=== PATIENT | female | born 1940 | race Caucasian/White ===

== ENCOUNTER 2024-05-24 23:44 | Inpatient (IN) | payer MEDICARE, SELFPAY ==
[2024-05-24 23:47] VITALS: O2SAT 93
[2024-05-24 23:48] VITALS: BP 115/68
[2024-05-24 23:52] VITALS: BP 115/68; PULSE 66; RESP 16; TEMP 36.4; O2SAT 94; BMI 25.8
--- NOTE | 2024-05-24 23:59 | DI.RAD.S_ITS ---
PROCEDURE: XR HIP W PEL IF DONE RT 2V INDICATIONS: fall, R leg shortened, pain TECHNIQUE: AP pelvis with lateral view(s) of the right hip(s). COMPARISON: None. FINDINGS: Bones: Displaced, comminuted and impacted right intertrochanteric fracture.. Pelvic ring appears intact. No suspicious bony lesions. Decreased osseous mineralization. Degenerative changes of the visualized lower lumbar spine and pubic symphysis. Severe right and mild left hip joint degeneration. Soft tissues: The visualized bowel gas pattern is normal. No suspicious soft tissue calcifications. IMPRESSION: Displaced and impacted right intertrochanteric fracture. Dictated by: Jarred Moe M.D. on 05/25/2024 at 0:39 Approved by: Jarred Moe M.D. on 05/25/2024 at 0:40
[2024-05-25] VITALS (28 sets, daily range): BP systolic 89–146; BP diastolic 38–84; PULSE 59–95; RESP 11–21; TEMP 36.6–37.7; O2SAT 86–100; BMI 11.2
--- NOTE | 2024-05-25 | DI.RAD.S_ITS ---
PROCEDURE: XR HIP W PEL IF DONE RT 2V INDICATIONS: RT HIP IM NAILLING TECHNIQUE: Fluoroscopic images were obtained during a procedure and submitted for interpretation following the completion of the procedure. COMPARISON: [facility], , XR HIP W PEL IF DONE RT 2V, 05/25/2024, 0:00. FINDINGS: These fluoroscopic images were performed for intraoperative localization. On these images, right proximal femur hardware is placed. Please correlate with intraoperative findings. IMPRESSION: Normal intraoperative examination. Dictated by: Shun Page M.D. on 05/25/2024 at 9:49 Approved by: Shun Page M.D. on 05/25/2024 at 9:49
--- NOTE | 2024-05-25 | ED.FALL ---
HPI - Fall General Chief Complaint: Fall Stated Complaint: fall right hip Time Seen by Provider: 05/24/24 23:50 Source: patient and EMS Mode of arrival: EMS History of Present Illness HPI Narrative: 83-year-old female fell out of bed, complains of pain to the right hip. She has arthritis on that side, never had any prior surgeries, no hip replacement. She did have replacement surgery to the right knee. No knee pain. No pain to the right thigh, knee, foreleg, ankle, foot. She had not hit her head. She denies head pain. She denies face pain. She denies pain to her neck, upper back, mid lower back. She denies pain to her anterior abdomen, has hernia left lower quadrant ventral, no increased pain thereafter the fall. She denies use of blood thinner medications. Related Data Allergies Allergy/AdvReac Type Severity Reaction Status Date / Time No Known Drug Allergies Allergy Verified 05/24/24 23:56 Review of Systems Review of Systems Narrative: see HPI Patient History Social History Smoking Status: Never smoker Smoking Status: Never smoker alcohol intake frequency: 0-2 drinks per day Substance Use Type: does not use Exam Narrative Exam Narrative: GENERAL: Well-developed patient, in mild distress. HEAD: Atraumatic. Normocephalic. EYES: Pupils equal round and reactive. Extraocular motions intact. No scleral icterus. No injection or drainage. ENT: Nose without bleeding, purulent drainage. Throat without erythema, tonsillar hypertrophy or exudate. Airway patent. NECK: Trachea midline. Non tender CARDIOVASCULAR: Regular rate and rhythm without murmurs, gallops, or rubs. RESPIRATORY: Clear to auscultation. Breath sounds equal bilaterally. No wheezes, rales, or rhonchi. GASTROINTESTINAL: Abdomen soft, non-tender, nondistended. EXTREMITIES: No gross limb length discrepancy lower extremities. Tenderness to lateral trochanteric region right hip, also anterior hip tenderness. No gross deformity of hip or thigh, no bruising or abrasion or laceration to the skin. No tenderness to right knee, foreleg, ankle, foot. BACK: Nontender without deformity or crepitance. No flank tenderness. NEURO: AOx3. Motor functions grossly nonfocal SKIN: No rash or erythema of visible areas Initial Vital Signs Initial Vital Signs: Vital Signs Temperature 97.6 F 05/24/24 23:52 Pulse Rate 66 05/24/24 23:52 Respiratory Rate 16 05/24/24 23:52 Blood Pressure 115/68 05/24/24 23:52 Pulse Oximetry 94 05/24/24 23:52 Oxygen Delivery Method Room Air 05/24/24 23:52 Course Orders Ordered: ED Orders 05/24/24 23:59 XR hip w pel if done RT 2V Stat Discontinued Medications Hydromorphone HCl (Hydromorphone 1 Mg Inj) 0.5 mg IV NOW ONE Stop: 05/25/24 00:24 Vital Signs Vital signs: Vital Signs - 8 hr 05/24/24 23:52 Temperature 97.6 F Pulse Rate 66 Respiratory Rate 16 Blood Pressure 115/68 Pulse Oximetry 94 Oxygen Delivery Method Room Air MDM - Fall MDM Narrative Medical decision making narrative: Football injury full contact, falling to the left shoulder, left shoulder area pain, tenderness to left AC joint area without gross separation, no significant tenderness along clavicle although has pain along the clavicle by report. X-ray from triage left shoulder and left clavicle ordered. 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 Distal neurovascular intact, no obvious other left upper extremity injuries. X-ray shows some separation left AC joint widening. Consistent with clinical exam. Possible AC joint injury on that side. Continue use of left sling, shoulder range of motion as tolerated to prevent frozen shoulder symptoms. Advised use of [id number] Tylenol and or ibuprofen as needed. Follow up with Orthopedic surgery early next week for assessment, evaluate at that time for return to activities/sports, versus need for home exercise and/or physical therapy regimen. Discharged home with family. Stable, follow up with Orthopedics. Return precautions discussed.
[2024-05-25] MEDS: HYDROMORPHONE 1 MG INJ 0.5 MG IV (00:41)
--- NOTE | 2024-05-25 01:15 | DI.RAD.S_ITS ---
PROCEDURE: XR CHEST 1V INDICATIONS: pre-op TECHNIQUE: One view of the chest was acquired. COMPARISON: None. FINDINGS: Surgical changes and devices: None. Lungs and pleura: Lungs are clear. No pleural effusions or pneumothorax. Mediastinum: Mediastinal contours appear normal. Heart size is enlarged. Bones and chest wall: No suspicious bony lesions. Overlying soft tissues appear unremarkable. IMPRESSION: Cardiomegaly. No acute pulmonary process. Dictated by: Jarred Moe M.D. on 05/25/2024 at 1:31 Approved by: Jarred Moe M.D. on 05/25/2024 at 1:32
--- NOTE | 2024-05-25 01:18 | ED.FALL ---
HPI - Fall General Chief Complaint: Fall Stated Complaint: fall right hip Time Seen by Provider: 05/24/24 23:50 Source: patient and EMS Mode of arrival: EMS Related Data Allergies Allergy/AdvReac Type Severity Reaction Status Date / Time No Known Drug Allergies Allergy Verified 05/24/24 23:56 Patient History Social History Smoking Status: Never smoker Smoking Status: Never smoker alcohol intake frequency: 0-2 drinks per day Substance Use Type: does not use Exam Initial Vital Signs Initial Vital Signs: Vital Signs Pulse Oximetry 93 05/24/24 23:47 Course Orders Ordered: ED Orders 05/24/24 23:59 XR hip w pel if done RT 2V Stat 05/25/24 01:13 CBC Auto Diff [Complete Blood Count AUTO DIFF] Stat CMP [Comprehensive Metabolic Panel] Stat Prothrombin Time INR Stat Urinalysis and Microscopic Stat 05/25/24 01:15 XR chest 1V Stat Discontinued Medications Hydromorphone HCl (Hydromorphone 1 Mg Inj) 0.5 mg IV NOW ONE Stop: 05/25/24 00:24 Last Admin: 05/25/24 00:41 Dose: 0.5 mg Documented By: TAMARA Vital Signs Vital signs: Vital Signs - 8 hr 05/24/24 23:47 05/24/24 23:48 05/24/24 23:52 Temperature 97.6 F Pulse Rate 66 Respiratory Rate 16 Blood Pressure 115/68 115/68 Pulse Oximetry 93 94 Oxygen Delivery Method Room Air 05/25/24 00:00 05/25/24 00:00 05/25/24 00:37 Temperature Pulse Rate 61 70 Respiratory Rate 18 Blood Pressure 118/74 Pulse Oximetry 94 94 Oxygen Delivery Method MDM - Fall Imaging Data Extremity x-ray #1: Radiologist's Impression: [address] [address] XRay Report Signed Patient: Toyin Lynn MR#: [id number] : 1940 Acct:[id number] Age/Sex: 83 / F Date of Service: 05/24/24 Loc: ED Accession Number: [id number] Procedure: XR hip w pel if done RT 2V Ordering Provider: Jose Oquendo MD PROCEDURE: XR HIP W PEL IF DONE RT 2V INDICATIONS: fall, R leg shortened, pain TECHNIQUE: AP pelvis with lateral view(s) of the right hip(s). COMPARISON: None. FINDINGS: Bones: Displaced, comminuted and impacted right intertrochanteric fracture.. Pelvic ring appears intact. No suspicious bony lesions. Decreased osseous mineralization. Degenerative changes of the visualized lower lumbar spine and pubic symphysis. Severe right and mild left hip joint degeneration. Soft tissues: The visualized bowel gas pattern is normal. No suspicious soft tissue calcifications. IMPRESSION: Displaced and impacted right intertrochanteric fracture. Dictated by: Jarred Moe M.D. on 05/25/2024 at 0:39 Approved by: Jarred Moe M.D. on 05/25/2024 at 0:40 Discharge Plan Departure Clinical Impression: Closed hip fracture
--- NOTE | 2024-05-25 01:20 | ED_ITS ---
HPI - Fall General Chief Complaint: Fall Stated Complaint: fall right hip Time Seen by Provider: 05/24/24 23:50 Source: patient and EMS Mode of arrival: EMS History of Present Illness HPI Narrative: 83-year-old female fell from bed, complained of right-sided hip pain, arrival by EMS, given IV pain medications EN route, still having significant pain to the right hip. No other injuries. She has not take chronic blood thinner medications. She has arthritis on that side but no previous hip intervention procedures. She denied injury to her head. She has no complaint of headache, neck pain, upper back pain, lower back pain. She denies pain to her chest abdomen and pelvis. She has pain to her right hip but not to her distal right extremity. She has joint replacement surgery in the right knee but has no knee pain tonight. No left lower extremity injuries. Related Data Allergies Allergy/AdvReac Type Severity Reaction Status Date / Time No Known Drug Allergies Allergy Verified 05/24/24 23:56 Review of Systems Review of Systems Narrative: See HPI Patient History Social History Smoking Status: Never smoker Smoking Status: Never smoker alcohol intake frequency: 0-2 drinks per day Substance Use Type: does not use Exam Narrative Exam Narrative: GENERAL: Well-developed patient, in mild distress. HEAD: Atraumatic. Normocephalic. EYES: Pupils equal round and reactive. Extraocular motions intact. No scleral icterus. No injection or drainage. ENT: Nose without bleeding, purulent drainage. Throat without erythema, tonsillar hypertrophy or exudate. Airway patent. NECK: Trachea midline. Non tender CARDIOVASCULAR: Regular rate and rhythm without murmurs, gallops, or rubs. RESPIRATORY: Clear to auscultation. Breath sounds equal bilaterally. No wheezes, rales, or rhonchi. GASTROINTESTINAL: Abdomen soft, non-tender, nondistended. EXTREMITIES: Some shortening right lower extremity compared to the left side. Good distal pulses. Some tenderness right lateral trochanteric region, without bruising or skin changes, no lacerations or abrasions. Minimal tenderness right anterior hip. No obvious deformity nor tenderness to the distal right lower extremity. No obvious deformity nor tenderness to the left lower extremity, nor to either upper extremity. BACK: Nontender without deformity or crepitance. No flank tenderness. NEURO: AOx3. Motor functions grossly nonfocal SKIN: No rash or erythema of visible areas Initial Vital Signs Initial Vital Signs: Vital Signs Pulse Oximetry 93 05/24/24 23:47 Course Orders Ordered: ED Orders 05/24/24 23:59 XR hip w pel if done RT 2V Stat 05/25/24 01:13 Urinalysis and Microscopic Stat 05/25/24 01:15 XR chest 1V Stat 05/25/24 01:25 CBC Auto Diff [Complete Blood Count AUTO DIFF] Stat CMP [Comprehensive Metabolic Panel] Stat Prothrombin Time INR Stat 05/25/24 01:42 EKG-12 Lead Stat Acetaminophen (Acetaminophen 325 Mg Tablet) 650 mg PO Q6H PRN PRN Reason: Fever/Mild Pain (1-3) Hydrocodone Bitart/Acetaminophen (Hydrocodone/Acet 5/325 Tablet) 2 tab PO Q4H PRN PRN Reason: Pain, Severe (7-10) Hydromorphone HCl (Hydromorphone 0.5 Mg Inj) 0.5 mg IV Q2H PRN PRN Reason: Pain, Severe (7-10) Sodium Chloride (Normal Saline 0.9%) 1,000 mls @ 75 mls/hr IV CONT EDITH Naloxone HCl (Naloxone 0.4 Mg/Ml Vial) 0.2 mg IV Q2MIN PRN PRN Reason: Opiate Reversal Ondansetron HCl (Ondansetron 4 Mg/2 Ml Inj) 4 mg IV Q8HR PRN PRN Reason: Nausea And Vomiting Discontinued Medications Hydromorphone HCl (Hydromorphone 1 Mg Inj) 0.5 mg IV NOW ONE Stop: 05/25/24 00:24 Last Admin: 05/25/24 00:41 Dose: 0.5 mg Documented By: TAMARA Vital Signs Vital signs: Vital Signs - 8 hr 05/24/24 23:47 05/24/24 23:48 05/24/24 23:52 Temperature 97.6 F Pulse Rate 66 Respiratory Rate 16 Blood Pressure 115/68 115/68 Pulse Oximetry 93 94 Oxygen Delivery Method Room Air 05/25/24 00:00 05/25/24 00:00 05/25/24 00:37 Temperature Pulse Rate 61 70 Respiratory Rate 18 Blood Pressure 118/74 Pulse Oximetry 94 94 Oxygen Delivery Method 05/25/24 01:00 05/25/24 01:01 05/25/24 01:01 Temperature Pulse Rate 59 L 61 Respiratory Rate 18 Blood Pressure 103/57 L Pulse Oximetry 93 94 Oxygen Delivery Method 05/25/24 01:30 05/25/24 01:30 05/25/24 02:00 Temperature Pulse Rate 66 73 Respiratory Rate Blood Pressure 110/60 Pulse Oximetry 94 93 Oxygen Delivery Method 05/25/24 02:01 05/25/24 02:01 05/25/24 02:30 Temperature Pulse Rate 77 74 Respiratory Rate Blood Pressure 115/56 L Pulse Oximetry 91 97 Oxygen Delivery Method 05/25/24 02:31 05/25/24 02:31 Temperature Pulse Rate 74 Respiratory Rate Blood Pressure 104/56 L Pulse Oximetry 98 Oxygen Delivery Method MDM - Fall Lab Data Attestation: I reviewed the patient's lab results. Lab results narrative: White blood cell count 9300, hemoglobin 12, platelets [id number] adequate. Sodium 129 low without previous comparisons, glucose 113. Potassium adequate. Serum CO2 27. BUN 10 and creatinine 0.58 normal. Liver functions unremarkable. Serum albumin 3.3 low. 05/25/24 01:25 05/25/24 01:25 Labs: Lab Results 05/25/24 Range/Units 01:25 WBC 9.3 (4.5-11.0) X10^3/uL RBC 3.79 L (4.0-5.2) X10^6/uL Hgb 12.0 (12.0-16.0) g/dL Hct 35.1 L (36-46) % MCV 92.6 (80-100) fL MCH 31.7 (26-34) PG MCHC 34.3 (30-36) % RDW 14.2 (11.6-14.8) % Plt Count 186 (150-400) X10^3/uL Neut % (Auto) 87.5 H (50-75) % Lymph % (Auto) 6.3 L (25-40) % [place] % (Auto) 5.2 (3-14) % Eos % (Auto) 0.5 L (2-4) % Baso % (Auto) 0.5 (0-2) % Neut # (Auto) 8200 H (9368-9262) /uL Lymph # (Auto) 600 L (8235-1431) /uL [place] # (Auto) 500 (0-900) /uL Eos # (Auto) 0 (0-450) /uL Baso # (Auto) 0 (0-100) /uL PT 11.5 (9.4-12.5) SECONDS INR 1.0 (0.9-1.3) Sodium 129 L (137-145) mmol/L Potassium 3.7 (3.4-5.1) mmol/L Chloride 99 (98-107) mmol/L Carbon Dioxide 27 (22-32) mmol/L BUN 10 (7-17) mg/dL Creatinine 0.58 (0.52-1.04) mg/dL Estimated GFR > 60 (>60) mL/min BUN/Creatinine Ratio 17.2 (6-22) Glucose 113 H (80-110) mg/dL Calcium 8.6 (8.4-10.2) mg/dL Total Bilirubin 0.3 (0.2-1.3) mg/dL AST 24 (14-36) IU/L ALT 16 (<35) IU/L Alkaline Phosphatase 56 (38-126) U/L Total Protein 6.0 L (6.3-8.2) g/dL Albumin 3.3 L (3.5-5.0) g/dL Globulin 2.7 (1.7-4.1) g/dL Albumin/Globulin Ratio 1.2 (1.0-2.8) Imaging Data Chest x-ray: My Impression: pre-op study, no acute changes Radiologist's Impression: [place] [address] XRay Report Signed Patient: Toyin Lynn MR#: [id number] : 1940 Acct:[id number] Age/Sex: 83 / F Date of Service: 05/25/24 Loc: ED Accession Number: [id number] Procedure: XR chest 1V Ordering Provider: Jose Oquendo MD PROCEDURE: XR CHEST 1V INDICATIONS: pre-op TECHNIQUE: One view of the chest was acquired. COMPARISON: None. FINDINGS: Surgical changes and devices: None. Lungs and pleura: Lungs are clear. No pleural effusions or pneumothorax. Mediastinum: Mediastinal contours appear normal. Heart size is enlarged. Bones and chest wall: No suspicious bony lesions. Overlying soft tissues appear unremarkable. IMPRESSION: Cardiomegaly. No acute pulmonary process. Dictated by: Jarred Moe M.D. on 05/25/2024 at 1:31 Approved by: Jarred Moe M.D. on 05/25/2024 at 1:32 ECG Data Attestation: I personally reviewed and interpreted this ECG as follows: Interpretation: Normal sinus rhythm with rate of 75, no obvious ST segment elevation or depression changes. [place] 180, QRS of 88, QTC 482. MDM Narrative Medical decision making narrative: 83-year-old female with right-sided hip pain after fall from bed, some limb shortening, suspect dislocation and/or fracture with impaction. Distal neurovascularly intact, no other injuries obvious. X-ray pelvis with right hip ordered. Still having pain, IV Dilaudid dose. X-ray pelvis with right hip shows intertrochanteric fracture on the right hip with impaction and some displacement. Dislocation. See radiology report. We will send preoperative studies: CBC, CMP, PT/INR, urinalysis, chest x-ray, EKG. Anticipate admission here unless renal function or other problems identified that can not be managed here. Preop labs unremarkable, normal renal function and liver functions, chest x-ray with some cardiomegaly without fluid overload changes noted. EKG unremarkable. Patient should be on have treatment here. We will contact Orthopedic surgery, anticipate admission to hospitalist service 0200, case discussed with Orthopedic surgery Dr. Rivera, can admit patient to hospitalist service here, anticipate surgery later this morning. 0225, case discussed with hospitalist Dr. Eaton who accepts patient for admission to inpatient Discharge Plan Departure Patient Disposition: Admitted As Inpatient Clinical Impression: Closed intertrochanteric fracture of femur, Hyponatremia Admit Date/Time: 05/25/24 02:32 Admit Provider: Guillaume Eaton
[2024-05-25 01:33] LABS: Add Manual Diff / Slide Review NO; Basophils Absolute Auto 0 /uL (0-100); Basophils Percent Auto 0.5 % (0-2); Eosinophils Absolute Auto 0 /uL (0-450); Eosinophils Percent Auto 0.5 % (2-4); Hematocrit 35.1 % (36-46); Lymphocytes Absolute Auto 600 /uL (1100-4500); Lymphocytes Percent Auto 6.3 % (25-40); Mean Corpuscular HGB Conc 34.3 % (30-36); Mean Corpuscular Hemoglobin 31.7 PG (26-34); Mean Corpuscular Volume 92.6 fL (80-100); Monocytes Absolute Auto 500 /uL (0-900); Monocytes Percent Auto 5.2 % (3-14); Neutrophils Absolute Auto 8200 /uL (1500-7000); Neutrophils Percent Auto 87.5 % (50-75); Platelet Count 186 X10^3/uL (150-400); Red Blood Cell Count 3.79 X10^6/uL (4.0-5.2); Red Cell Distribution Width 14.2 % (11.6-14.8); White Blood Cell Count 9.3 X10^3/uL (4.5-11.0)
[2024-05-25 01:38] LABS: Prothrombin Time 11.5 SECONDS (9.4-12.5)
[2024-05-25 01:43] LABS: Alanine Aminotransferase 16 IU/L (<35); Albumin 3.3 g/dL (3.5-5.0); Albumin Globulin Ratio 1.2 (1.0-2.8); Alkaline Phosphatase 56 U/L (38-126); Aspartate Aminotransferase 24 IU/L (14-36); BUN Creatinine Ratio 17.2 (6-22); Bilirubin Total 0.3 mg/dL (0.2-1.3); Blood Urea Nitrogen 10 mg/dL (7-17); Calcium 8.6 mg/dL (8.4-10.2); Carbon Dioxide 27 mmol/L (22-32); Chloride 99 mmol/L (98-107); Estimated Glomerular Filt Rate > 60 mL/min (>60); Globulin 2.7 g/dL (1.7-4.1); Glucose 113 mg/dL (80-110); HEMOLYSIS < 15 (0-50); Potassium 3.7 mmol/L (3.4-5.1); Sodium 129 mmol/L (137-145)
--- NOTE | 2024-05-25 01:51 | EKG_ITS ---
[place] [address] [place] [address] Test Date: 2024-05-25 Pat Name: Toyin Lynn Department: [facility] Room: Gender: Female [employer]: : 1940 Requested By: Order Number: [id number] Reading MD: Bryant Frazier Measurements Intervals [place] Rate: 75 P: 79 HI: 180 QRS: -32 QRSD: 88 T: 45 QT: 432 QTc: 482 Interpretive Statements Sinus rhythm with premature supraventricular complexes Left axis deviation Low voltage QRS Electronically Signed On 05-25-2024 18:11:17 PDT by Bryant Frazier
--- NOTE | 2024-05-25 02:47 | P.HP_ITS ---
History of Present Illness History of Present Illness Chief complaint: fall right hip Narrative: 83 year old female with no reported past medical history presents with a ground level fall. Per the patient's report, the patient had a mechanical fall at home. The patient fell onto her right side and landed on her right hip. The patient denies any LOC or head injury. The patient states that she does not have any other pain other than her right hip. The patient states the pain is severe and she is unable to bear weight on it. The patient denies any recent chest pain, fever, chills, nausea, vomiting or diarrhea. The patient also denies any shortness of breath or coughing. In our ER, the patient was hemodynamically stable. Labs only shows a sodium of 129 but other labs were relatively benign. EKGs and CXR does not show any acute findings. Imaging of hip shows right hip fracture. Orthopedic surgery consulted and recommended admission for plan for OR this morning. The patient was given IV prn Dilaudid. PFSH Social History household members: friend(s) Smoking Status: Never smoker Meds Home Medications and Allergies Allergies Allergy/AdvReac Type Severity Reaction Status Date / Time No Known Drug Allergies Allergy Verified 05/24/24 23:56 Review of Systems Review of Systems ROS: Yes All systems reviewed with the patient and are negative except as otherwise documented Exam Vital Signs (past 8 hours): - 05/24/24 23:47 05/24/24 23:48 05/24/24 23:52 Temperature 97.6 F Pulse Rate 66 Respiratory Rate 16 Blood Pressure 115/68 115/68 Pulse Oximetry 93 94 Oxygen Delivery Method Room Air 05/25/24 00:00 05/25/24 00:00 05/25/24 00:37 Temperature Pulse Rate 61 70 Respiratory Rate 18 Blood Pressure 118/74 Pulse Oximetry 94 94 Oxygen Delivery Method 05/25/24 01:00 05/25/24 01:01 05/25/24 01:01 Temperature Pulse Rate 59 L 61 Respiratory Rate 18 Blood Pressure 103/57 L Pulse Oximetry 93 94 Oxygen Delivery Method 05/25/24 01:30 05/25/24 01:30 05/25/24 02:00 Temperature Pulse Rate 66 73 Respiratory Rate Blood Pressure 110/60 Pulse Oximetry 94 93 Oxygen Delivery Method 05/25/24 02:01 05/25/24 02:01 05/25/24 02:30 Temperature Pulse Rate 77 74 Respiratory Rate Blood Pressure 115/56 L Pulse Oximetry 91 97 Oxygen Delivery Method 05/25/24 02:31 05/25/24 02:31 Temperature Pulse Rate 74 Respiratory Rate Blood Pressure 104/56 L Pulse Oximetry 98 Oxygen Delivery Method Oxygen Delivery Method Room Air Narrative Exam Narrative: GENERAL: The patient is not in any acute distressed. Awake and alert. HEENT: Nonicteric sclerae, PERRLA, EOMI. Oropharynx clear. Moist mucous membranes. Conjunctivae appear well perfused. HEART: Regular rate and rhythm without murmurs. No lower extremities edema. LUNGS: Clear to auscultation bilaterally. No wheezing, crackles or rhonchi ABDOMEN: Soft, positive bowel sounds, nontender. SKIN: No rash, no excessive bruising, petechiae, or purpura. NEUROLOGIC: AxO x 3. Cranial nerves II-XII intact without motor/sensory deficit. Note limited movement however in right LES due to right hip pain Objective Labs 05/25/24 04:00 05/25/24 04:00 Labs: Laboratory Results - last 24 hr 05/25/24 01:25 WBC 9.3 RBC 3.79 L Hgb 12.0 Hct 35.1 L MCV 92.6 MCH 31.7 MCHC 34.3 RDW 14.2 Plt Count 186 Neut % (Auto) 87.5 H Lymph % (Auto) 6.3 L [place] % (Auto) 5.2 Eos % (Auto) 0.5 L Baso % (Auto) 0.5 Neut # (Auto) 8200 H Lymph # (Auto) 600 L [place] # (Auto) 500 Eos # (Auto) 0 Baso # (Auto) 0 PT 11.5 INR 1.0 Sodium 129 L Potassium 3.7 Chloride 99 Carbon Dioxide 27 BUN 10 Creatinine 0.58 Estimated GFR > 60 BUN/Creatinine Ratio 17.2 Glucose 113 H Calcium 8.6 Total Bilirubin 0.3 AST 24 ALT 16 Alkaline Phosphatase 56 Total Protein 6.0 L Albumin 3.3 L Globulin 2.7 Albumin/Globulin Ratio 1.2 Assessment & Plan Assessment & Plan narrative: Ground level fall with right hip fracture. Admit the patient to medical tele inpatient. NPO. IVF. Pain control with prn IV dilaudid. Note patient medically stable for surgery but at least moderate cardiopulmonary risk for surgery due to advanced age. Orthopedic surgery is plan for OR this AM. Will need PT/OT post surgery. Mild hyponatremia. Sodium 129. Likely from dehydration. NS and recheck sodium in AM. Dehydration. IVF. DVT PPx SCDs for now due to plan OR in AM Code status full code Disposition rehab in 2 days Time-Based Coding :: [TOTAL MINUTES] spent with patient and on the chart (including review of chart, obtaining history, exam, reviewing outside data, placing orders, documenting exam and treatment plan, and counseling patient) on [DATE].
[2024-05-25] MEDS: SODIUM CHLORIDE 0.9% 1,000 ML 75 ML IV (03:23)
[2024-05-25] MEDS: HYDROMORPHONE 0.5 MG INJ IV ×2 (03:31→16:30)
[2024-05-25 04:10] LABS: Bilirubin Urine UA NEGATIVE (NEGATIVE); Color Urine UA YELLOW; Glucose Urine UA NEGATIVE (Negative); Ketones Urine UA TRACE (NEGATIVE); Leukocyte Esterase Urine UA NEGATIVE (NEGATIVE); Nitrite Urine UA POSITIVE (Negative); Occult Blood Urine UA NEGATIVE (Negative); Protein Urine UA NEGATIVE (Negative); Specific Gravity Urine UA <=1.005 (1.000-1.035); Urobilinogen Urine UA 0.2 E.U./dL (0.2)
[2024-05-25 04:11] LABS: Appearance Urine UA SL CLOUDY; Urine Volume 10mL (spun)
[2024-05-25 04:16] LABS: WBC Urine 0-1/HPF (0-5/HPF)
[2024-05-25 04:17] LABS: Bacteria Urine Many (>30); Culture Indicated Urine Specimen Cultured; RBC Urine None Seen (0-5/HPF); Squamous Epithelial Cell Urine 0-1 /HPF (0-5/HPF)
[2024-05-25 04:30] LABS: Add Manual Diff / Slide Review NO; Basophils Absolute Auto 0 /uL (0-100); Basophils Percent Auto 0.5 % (0-2); Eosinophils Absolute Auto 0 /uL (0-450); Eosinophils Percent Auto 0.2 % (2-4); Hematocrit 37.3 % (36-46); Hemoglobin 12.4 g/dL (12.0-16.0); Lymphocytes Absolute Auto 400 /uL (1100-4500); Lymphocytes Percent Auto 3.8 % (25-40); Mean Corpuscular HGB Conc 33.3 % (30-36); Mean Corpuscular Hemoglobin 31.2 PG (26-34); Mean Corpuscular Volume 93.6 fL (80-100); Monocytes Absolute Auto 500 /uL (0-900); Monocytes Percent Auto 5.5 % (3-14); Neutrophils Absolute Auto 8900 /uL (1500-7000); Platelet Count 197 X10^3/uL (150-400); Red Blood Cell Count 3.98 X10^6/uL (4.0-5.2); Red Cell Distribution Width 13.9 % (11.6-14.8); White Blood Cell Count 9.9 X10^3/uL (4.5-11.0)
[2024-05-25 04:35] LABS: BUN Creatinine Ratio 20.8 (6-22); Blood Urea Nitrogen 11 mg/dL (7-17); Calcium 8.7 mg/dL (8.4-10.2); Carbon Dioxide 28 mmol/L (22-32); Chloride 99 mmol/L (98-107); Estimated Glomerular Filt Rate > 60 mL/min (>60); Glucose 121 mg/dL (80-110); HEMOLYSIS < 15 (0-50); Potassium 4.1 mmol/L (3.4-5.1); Sodium 131 mmol/L (137-145)
[2024-05-25] MEDS: cefTRIAXone 1,000 MG in SODIUM CHLORIDE 0.9% 100 ML 200 MG IV (06:34)
--- NOTE | 2024-05-25 08:29 | PT-IP ANOTE ---
PT eval received. EMR reviewed. Pt scheduled for sx today. will d/c PT eval order and will wait for new order post-sx
--- NOTE | 2024-05-25 08:57 | PM.HP.1 ---
History of Present Illness History of Present Illness Chief complaint: fall right hip Narrative: CHIEF COMPLAINT: Hip fracture PATIENT SUMMARY: The patient is an 83-year-old female who presented with a hip fracture. HISTORY OF PRESENT ILLNESS: The patient was admitted as an inpatient consult for a hip fracture. The injury was confirmed through imaging, which revealed a simple pattern, intertrochanteric right femur fracture with displacement. The imaging also showed significant right hip osteoarthritis, characterized by subchondral sclerosis and acetabular cysts. The patient described ongoing hip pain prior to the fracture, indicating chronic hip arthritis. The fall leading to the fracture occurred at ground level. The patient had been active, moving boxes and art supplies, before the incident. There are plans to fix the fracture with a nail, with consideration for a potential hip replacement in the future due to existing arthritis. The patient used a walker prior to this incident. PAST MEDICAL HISTORY: - Osteoarthritis of the right hip PAST SURGICAL HISTORY: - Knee replacement (date unspecified) MEDICATIONS: Not available ALLERGIES: Not available SOCIAL HISTORY: - The patient lives with a head doctor for [employer] and another medical nurse friend. - The patient is an artist with a history of painting. FAMILY HISTORY: Not available REVIEW OF SYSTEMS: Musculoskeletal: Positive for chronic right hip pain. Negative for any fractures around the knee similar to the current hip fracture. VITALS AND PHYSICAL EXAM: Not available ASSESSMENT: 1. Intertrochanteric right femur fracture: This was confirmed by imaging and was likely exacerbated by a fall at ground level. The underlying osteoarthritis likely contributed to the fracture risk. 2. Right hip osteoarthritis: The patient's chronic hip pain and imaging findings suggest significant osteoarthritis, which may necessitate a future hip replacement. PLAN: Treatment: - Surgical fixation of the intertrochanteric right femur fracture with a nail. Tests: - Imaging was already performed with AP pelvis and lateral right hip radiographs. Patient Education: - Discussed the implications of existing arthritis on hip fracture treatment and the potential need for future hip replacement. - Informed the patient about surgical risks, including bleeding, damage to surrounding structures, and the possibility of requiring additional surgery in the future. Follow-Up: - Planned post-operative follow-up for monitoring fracture healing and assessing the need for future hip replacement. Disposition: - The patient was advised to recover at home with assistance from housemates, avoiding a nursing facility. [facility] Social History household members: friend(s) Smoking Status: Never smoker Meds Home Medications and Allergies Allergies Allergy/AdvReac Type Severity Reaction Status Date / Time No Known Drug Allergies Allergy Verified 05/24/24 23:56 Review of Systems Review of Systems ROS: Yes All systems reviewed with the patient and are negative except as otherwise documented Exam Vital Signs (past 8 hours): - 05/25/24 01:00 05/25/24 01:01 05/25/24 01:01 Temperature Pulse Rate 59 L 61 Respiratory Rate 18 Blood Pressure 103/57 L Pulse Oximetry 93 94 Oxygen Delivery Method 05/25/24 01:30 05/25/24 01:30 05/25/24 02:00 Temperature Pulse Rate 66 73 Respiratory Rate Blood Pressure 110/60 Pulse Oximetry 94 93 Oxygen Delivery Method 05/25/24 02:01 05/25/24 02:01 05/25/24 02:30 Temperature Pulse Rate 77 74 Respiratory Rate Blood Pressure 115/56 L Pulse Oximetry 91 97 Oxygen Delivery Method 05/25/24 02:31 05/25/24 02:31 05/25/24 03:12 Temperature 99.0 F Pulse Rate 74 95 H Respiratory Rate 18 Blood Pressure 104/56 L 112/68 Pulse Oximetry 98 94 Oxygen Delivery Method 05/25/24 03:30 05/25/24 07:00 Temperature 98.1 F Pulse Rate 92 H Respiratory Rate 16 Blood Pressure 116/68 Pulse Oximetry 97 Oxygen Delivery Method Nasal Cannula Oxygen Delivery Method Nasal Cannula Const General: cooperative Orientation: alert and awake HENMT Head: normal to inspection Ears: hearing grossly normal bilaterally Eyes General: appearance normal, both eyes and all related structures Neck Neck: normal visual inspection Resp Effort & Inspection: normal respiratory effort and able to speak in complete sentences Cardio Pulses: other (peripheral pulses present) Skin Lesions: no lesions Rashes: no rashes Neuro General: patient alert, patient awake and moves all extremities Psych Appearance: grossly normal Objective Labs 05/25/24 04:00 05/25/24 04:00 Labs: Laboratory Results - last 24 hr 05/25/24 05/25/24 01:25 04:00 WBC 9.3 9.9 RBC 3.79 L 3.98 L Hgb 12.0 12.4 Hct 35.1 L 37.3 MCV 92.6 93.6 MCH 31.7 31.2 MCHC 34.3 33.3 RDW 14.2 13.9 Plt Count 186 197 Neut % (Auto) 87.5 H 90.0 H Lymph % (Auto) 6.3 L 3.8 L [place] % (Auto) 5.2 5.5 Eos % (Auto) 0.5 L 0.2 L Baso % (Auto) 0.5 0.5 Neut # (Auto) 8200 H 8900 H Lymph # (Auto) 600 L 400 L [place] # (Auto) 500 500 Eos # (Auto) 0 0 Baso # (Auto) 0 0 PT 11.5 INR 1.0 Sodium 129 L 131 L Potassium 3.7 4.1 Chloride 99 99 Carbon Dioxide 27 28 BUN 10 11 Creatinine 0.58 0.53 Estimated GFR > 60 > 60 BUN/Creatinine Ratio 17.2 20.8 Glucose 113 H 121 H Calcium 8.6 8.7 Total Bilirubin 0.3 AST 24 ALT 16 Alkaline Phosphatase 56 Total Protein 6.0 L Albumin 3.3 L Globulin 2.7 Albumin/Globulin Ratio 1.2 Urine Color Yellow Urine Appearance Sl cloudy Urine pH 6.0 Ur Specific [place] <=1.005 Urine Protein Negative Urine Glucose (UA) Negative Urine Ketones Trace H Urine Occult Blood Negative Urine Nitrate Positive H Urine Bilirubin Negative Urine Urobilinogen 0.2 Ur Leukocyte Esterase Negative Urine RBC None seen Urine WBC 0-1/hpf Ur Squamous Epith Cells 0-1 /hpf Urine Bacteria Many (>30) H Ur Culture Indicated? Specimen cultured Vol Urine Centrifuged 10ml (spun) Assessment & Plan Time-Based Coding :: [TOTAL MINUTES] spent with patient and on the chart (including review of chart, obtaining history, exam, reviewing outside data, placing orders, documenting exam and treatment plan, and counseling patient) on [DATE].
[2024-05-25] MEDS: LACTATED RINGERS 1,000 ML 42 ML IV (09:00)
[2024-05-25] MEDS: TRANEXAMIC ACID 1,000 MG in SODIUM CHLORIDE 0.9% 100 ML 200 MG IV ×2 (09:31→10:04)
[2024-05-25] MEDS: CEFAZOLIN 2 GM/100 ML PREMIX 100 ML IV ×2 (09:31→18:16)
--- NOTE | 2024-05-25 09:41 | SUR.OPER ---
Supine on padded [place] table with bilateral legs secured in padded positioning boots and suspended in positioning spars, operative leg in traction per surgeon. Head on one pillow. Arm on non-operative side secured on padded armboard <90 degrees abduction. Arm on operative side padded and resting across chest then secured with tape over sheet. Padded perineal post in place per surgeon.
[2024-05-25] MEDS: BUPIVACAINE 0.25% (PF) 30 ML, EPINEPHrine 0.15 MG INJ (09:49)
--- NOTE | 2024-05-25 10:24 | P.OP_ITS ---
Operative Date/Time/Diagnoses Date of procedure: 05/25/24 Pre-op diagnosis: Intertrochanteric right femur fracture Post-op diagnosis: same Procedure & Clinicians Procedure: Intramedullary nailing of intertrochanteric right femur fracture Same procedure as scheduled: Yes Surgeon: Aidan Rivera Click Yes if Unassisted: Yes Anesthesia Type: General and Local Operative Notes Estimated Blood Loss (mL): 200 Procedure in detail: Right Hip Intramedullary Nailing for Intertrochanteric Femur Fracture Implants: * [employer]ran [employer]hew 11.5 mm x 20 cm InterTAN nail * 95 mm proximal lag screw * 90 mm proximal compression screw * 37.5 mm distal interlocking screw Procedure in detail: This patient presented to the hospital for hip pain and was found to have an intertrochanteric femur fracture on radiographic evaluation in the emergency department. ?As the on-call orthopedic surgeon I was consulted for management. ?The patient was admitted to the medicine service here at [facility] and received a preoperative evaluation to ensure that no optimization measures would be necessary to minimize the patient's risk for complications around surgery prior to proceeding with intramedullary nailing. ?After assessment from the watch crystal edge grinder as well as anesthesia the patient was deemed optimized for surgery. ?Risks and benefits were discussed. ?All questions were answered. ?Informed consent was obtained. ?The operative site on the right extremity was marked. ?The patient was taken to the operating room and transferred onto a [place] table. ?All bony prominences were padded. ?A time-out procedure was performed verifying the correct patient identity, operative site, medical comorbidities, ASA score, and medication allergies. ?Injury radiographs displaying the injured hip were displayed in the room. ?Ancef and tranexamic acid were administered. Prior to incision fluoroscopy was utilized to manipulate the fracture into an appropriate reduction. ?This involved traction and degrees of internal rotation. ?Once satisfied with the radiographic appearance of the fracture on an AP hip radiograph as well as a lateral hip radiograph the patient was prepped and draped in the usual sterile fashion. ?I mapped out the start points fluoroscopically with the guidewire. ?I obtained a start point at the tip of the greater trochanter on the AP view aiming towards the lesser trochanter and centered in the greater trochanter aiming down the femoral shaft on the lateral view. ?The guidewire was inserted and an opening Reamer was utilized to gain access to the canal. ?The InterTAN nail was introduced and passed down to an appropriate depth where the interlocking screws would aim towards the center of the femur on an AP view. ?On a lateral fluoroscopic view the rotation of the C- arm was adjusted until the nail was centered in the femoral head. ?The jig was then rotated so that it would line with the nail and the femoral head in order to set the rotation of the nail. ?A guidewire was passed and evaluated to ensure appropriate center center position on both the AP and lateral fluoroscopic images to minimize tip apex distance. ?Once satisfied with the guidewire position I used the drills for the lag and compression screws for the InterTAN nail and measured the length of those. ?The compression screw utilized was 5 mm shorter than the lag screw. ?These were both inserted and correct positioning was verified fluoroscopically. ?The distal interlocking screw was inserted through the jig. ?The threaded capsular was removed proximally and final fluoroscopic images were obtained evaluating fracture reduction and implant positioning on AP and lateral views throughout the entire construct. ?I was satisfied with these radiographs. The wound was copiously irrigated. ?Local anesthesia was infiltrated throughout the wound. ?The wound was closed and a soft dressing was applied. ?The patient was transferred off of the [place] table and brought to the PACU. Postoperative plan: * Weightbearing as tolerated * Aspirin 81 mg twice per day for DVT prophylaxis * Long-term there is a significant risk that after this heals she returns electively for conversion to total hip arthroplasty given her pre-existing hip arthritis. I will discuss that possibility with her in detail during follow up visits in clinic * Recommend multimodal pain regimen * Anticipate that patient will be able to return home postoperatively after a inpatient hospital stay as she has ample home support * Follow up in [address] [facility]
--- NOTE | 2024-05-25 12:50 | P.HP_ITS ---
History of Present Illness History of Present Illness Date Patient Seen: 05/25/24 Time Patient Seen: 11:15 Chief complaint: fall right hip Narrative: From overnight provider, 83 year old female with no reported past medical history presents with a ground level fall. Per the patient's report, the patient had a mechanical fall at home. The patient fell onto her right side and landed on her right hip. The patient denies any LOC or head injury. The patient states that she does not have any other pain other than her right hip. The patient states the pain is severe and she is unable to bear weight on it. The patient denies any recent chest pain, fever, chills, nausea, vomiting or diarrhea. The patient also denies any shortness of breath or coughing. In our ER, the patient was hemodynamically stable. Labs only shows a sodium of 129 but other labs were relatively benign. EKGs and CXR does not show any acute findings. Imaging of hip shows right hip fracture. Orthopedic surgery consulted and recommended admission for plan for OR this morning. The patient was given IV prn Dilaudid. Interval History: Patient is now s/p repair with orthopedics this morning. Complains of hip pain, improved with medications. Denies chest pain, shortness of breath, dizziness. Very much does not wish to go to rehab, would like home health if needed. [facility], [facility] Social History household members: friend(s) Smoking Status: Never smoker Meds Home Medications and Allergies Home Medications Medication Instructions Recorded Confirmed Type multivitamin with minerals-folic 1 tab PO DAILY 05/25/24 05/25/24 History acid 120 mcg chewable tablet (Adult Multivitamin Gummies) Allergies Allergy/AdvReac Type Severity Reaction Status Date / Time No Known Drug Allergies Allergy Verified 05/24/24 23:56 Review of Systems Review of Systems Narrative: All other systems reviewed with the patient and are negative unless otherwise stated. Exam Vital Signs (past 8 hours): - 05/25/24 07:00 05/25/24 07:00 05/25/24 08:30 Temperature 98.1 F 99.9 F H Pulse Rate 92 H 84 Respiratory Rate 16 16 Blood Pressure 116/68 146/84 H Pulse Oximetry 97 94 Oxygen Delivery Method Nasal Cannula Room Air Oxygen Flow Rate 05/25/24 10:19 05/25/24 10:22 05/25/24 10:28 Temperature 98.9 F Pulse Rate 85 94 H 78 Respiratory Rate 11 L 15 18 Blood Pressure 99/49 L 96/56 L 100/58 L Pulse Oximetry 86 L 95 99 Oxygen Delivery Method Room Air Nasal Cannula Nasal Cannula Oxygen Flow Rate 3 2 05/25/24 10:34 05/25/24 10:39 05/25/24 10:47 Temperature Pulse Rate 76 80 74 Respiratory Rate 15 21 19 Blood Pressure 100/63 89/63 L 98/58 L Pulse Oximetry 99 99 98 Oxygen Delivery Method Nasal Cannula Nasal Cannula Nasal Cannula Oxygen Flow Rate 2 2 2 05/25/24 10:54 05/25/24 11:10 05/25/24 11:40 Temperature 98.5 F 98.1 F Pulse Rate 78 77 76 Respiratory Rate 16 16 16 Blood Pressure 107/63 122/78 113/79 Pulse Oximetry 96 95 97 Oxygen Delivery Method Nasal Cannula Oxygen Flow Rate 2 2 2 05/25/24 12:30 05/25/24 12:46 Temperature 98.1 F Pulse Rate 72 Respiratory Rate 16 Blood Pressure 112/38 L 119/71 Pulse Oximetry 97 Oxygen Delivery Method Oxygen Flow Rate 2 Oxygen Delivery Method Nasal Cannula Oxygen Flow Rate 2 Narrative Exam Narrative: Gen: NAD, alert CV: RRR no m/r/g Pulm: CTA b/l Ext: no edema Neuro: moves all extremities equally, no obvious focal deficits Objective Labs 05/25/24 04:00 05/25/24 04:00 Labs: Laboratory Results - last 24 hr 05/25/24 05/25/24 01:25 04:00 WBC 9.3 9.9 RBC 3.79 L 3.98 L Hgb 12.0 12.4 Hct 35.1 L 37.3 MCV 92.6 93.6 MCH 31.7 31.2 MCHC 34.3 33.3 RDW 14.2 13.9 Plt Count 186 197 Neut % (Auto) 87.5 H 90.0 H Lymph % (Auto) 6.3 L 3.8 L [place] % (Auto) 5.2 5.5 Eos % (Auto) 0.5 L 0.2 L Baso % (Auto) 0.5 0.5 Neut # (Auto) 8200 H 8900 H Lymph # (Auto) 600 L 400 L [place] # (Auto) 500 500 Eos # (Auto) 0 0 Baso # (Auto) 0 0 PT 11.5 INR 1.0 Sodium 129 L 131 L Potassium 3.7 4.1 Chloride 99 99 Carbon Dioxide 27 28 BUN 10 11 Creatinine 0.58 0.53 Estimated GFR > 60 > 60 BUN/Creatinine Ratio 17.2 20.8 Glucose 113 H 121 H Calcium 8.6 8.7 Total Bilirubin 0.3 AST 24 ALT 16 Alkaline Phosphatase 56 Total Protein 6.0 L Albumin 3.3 L Globulin 2.7 Albumin/Globulin Ratio 1.2 Urine Color Yellow Urine Appearance Sl cloudy Urine pH 6.0 Ur Specific [place] <=1.005 Urine Protein Negative Urine Glucose (UA) Negative Urine Ketones Trace H Urine Occult Blood Negative Urine Nitrate Positive H Urine Bilirubin Negative Urine Urobilinogen 0.2 Ur Leukocyte Esterase Negative Urine RBC None seen Urine WBC 0-1/hpf Ur Squamous Epith Cells 0-1 /hpf Urine Bacteria Many (>30) H Ur Culture Indicated? Specimen cultured Vol Urine Centrifuged 10ml (spun) Assessment & Plan Assessment & Plan narrative: 1. Acute pathologic R intertrochanteric femur fracture, secondary to osteoporosis, present on admission - s/p intermedullary nailing today with orthopedics - PT/OT to start later today - pain control as needed - Patient does not wish to go to SNF, will see how therapies go today. - Imbalance / fall may be in part due to acute cystitis. 2. Acute cystitis, present on admission - 3 days ceftriaxone. - Follow up urine cultures. 3. Hyponatremia, unknown chronicity, present on admission - improved to 131 today, will stop IV fluids given shortage, continue to encourage oral rehydration. If there is worsening will further evaluate with urine sodium. At this time will continue to monitor with daily BMP. Will also stop telemetry. Code: DNR, surrogate is patient's son DVT: Per orthopedics, ASA BID I have utilized all available immediate resources to obtain, update, or review the patient's current medications. Dispo: patient admitted under inpatient status. Unclear if will be able to discharge home or possible SNF, will have PT/OT evaluations. Additional history obtained via discussions with the overnight provider and orthopedic surgeon. These discussions contributed to the creation of the above assessment and plan. I have reviewed patient's presenting documentation, labs, and imaging personally. Time-Based Coding :: [TOTAL MINUTES] spent with patient and on the chart (including review of chart, obtaining history, exam, reviewing outside data, placing orders, documenting exam and treatment plan, and counseling patient) on [DATE].
[2024-05-25] MEDS: HYDROCODONE/ACET 5/325 TABLET 2 TAB PO ×2 (13:52→20:38)
[2024-05-25] MEDS: IBUPROFEN 600 MG TABLET PO ×2 (13:55→18:16)
--- NOTE | 2024-05-25 14:39 | CM.DANOTE ---
Patient is an 83 yo female who was admitted INPT Status on 05/25/24 for GLF with hip fx. Pt has MCR for insurance and her PCP is not listed. EMR was reviewed. Per MD, pt admitted with UTI after GLF with hip fx and NPO. Per Ortho, recommendation of hip surgery and taken to OR this morning Monday. PT ordered and pending and PT will attempt eval this afternoon but might have to eval in the morning due to caseload. SW met bedside with pt and her adult son/DPALEJANDRA [place] and explained role and they confirm pt lives at home in [place] with a couple friends and son Felix lives in [place]. Pt is active and independent at baseline and drives and does not typically use DME for ambulation. Pt denies any hx of HH or SNF and SW explained both options and services. Both pt and son adamant that they do not want SNF at discharge and plan on home with friends to assist and would be agreeable with HH and son wanting to remain bedside for PT eval in order to help with setting up a good discharge plan before he has to head back to [place]. Son also states that finances are not an issue if increased care and hiring a CG is needed at d/c. Plan: SW to follow closely for PT eval and recommendations to confirm safe d/c home with friends and likely HH and any further identified discharge planning needs. MERVIN Tadeo Discharge Planning/Care Management CM Discharge Assessment Start: 05/25/24 14:37 Freq: Status: Active Protocol: Document 05/25/24 14:37 BF (Rec: 05/25/24 14:39 BF [id number]) Discharge Planning Assessment Assigned Photographic Double MERVIN Francis/Assigned Designee Name ward [place] Contact Information [phone] Advance Directives? Yes Advance Directives on File No History Provided By Patient,Family Member,Medical Record Has Patient been admitted in last 30 No days? Prior Living Arrangements House Household Members friend(s) Type of transporation used prior to Drives own vehicle admit Independent with ADL's Yes Is patient alert and oriented? Yes Needs Assistance With Home Chores / Shopping Caregiver for Another No Patient/Family Preference Assisted Facility,Home with Home Health Comment SNF vs HH pending PT eval Barriers to Discharge No Discharge Plan Home with Home Health Community [facility] Physical Therapy Transportation Arrangement Son currently bedside but lives in [place] and if safe for home likely friend to transport Additional Comment Pending PT eval and recommendations for SNF vs HH Whiteboard Updated in Patient Room with Yes name and ext. # of Photographic Double Review Status In Process Please Provide Date Initial DC 05/25/24 Assessment Was Performed Next Review Type Continued Stay Review
--- NOTE | 2024-05-25 14:40 | PT.IIE ---
Current Diagnoses Fracture of unspecified part of neck of right femur, initial encounter for closed fracture (05/25/24) Surgery Performed Operation Date: 05/25/24 10:00 Actual Procedures p Intramedullary Nailing Femur(Right) - Aidan Rivera MD Physical Therapy Inpatient Evaluation/Re-Eval M1 PT/OT-IP Prior Functional Status Start: 05/25/24 17:12 Freq: NEEDED Status: Active Protocol: Document 05/25/24 15:40 AB (Rec: 05/25/24 17:30 AB [id number]) Medical Review Prior Functional Status Medical History Reviewed Yes Communication able to make needs known but with confusion Mobility and Gait pt stated that she was independent with all mobilities and ambulation without AD Social History Household Members friend(s) Living Arrangements House Number of Floors (Floors) One Floor Number of Stairs To Enter/Railing? ramp to enter Home Environment High Toilet,Walk in Shower, Bidet Home Equipment Hand Held Shower Additional Social History Comment pt lives with her friends who can provide her assistance pt's friend that he will put in grab bars in the toilet and shower pt's son stated that he will get a FWW for pt M2 PT-IP Current Condition Start: 05/25/24 17:12 Freq: NEEDED Status: Active Protocol: Document 05/25/24 15:40 AB (Rec: 05/25/24 17:30 AB [id number]) Physical Therapy Current Condition Current Condition Evaluation Date 05/25/24 Treatment Diagnosis s/p R hip ORIF; difficulty in walking Onset Date 05/25/24 M3 PT-IP Subjective Start: 05/25/24 17:12 Freq: NEEDED Status: Active Protocol: Document 05/25/24 15:40 AB (Rec: 05/25/24 17:30 AB [id number]) Subjective Physical Therapy Visit Type Type Initial Evaluation Visit Start Time 15:40 Visit Stop Time 16:35 Number of OCEAN IMPORT REPRESENTATIVE Visits 0 Therapy Pain Assessment Pain When Pain Assessed At Rest Pain Present Pain Present Pain Reported Location Right Hip Intensity 10 Scale Used Numeric (0 - 10) Pain Management Techniques Distraction,Modification of Treatment,Re-positioning, Timing of Activity with Medications M4 PT-IP Mobility and Gait Start: 05/25/24 17:12 Freq: NEEDED Status: Active Protocol: Document 05/25/24 15:40 AB (Rec: 05/25/24 17:30 AB [id number]) PT-Bed Mobility Assessment Supine to Sit Supine to Sit Maximum Assistance,1 Person Assistance,Head of Bed Elevated,Bedrails PT-Transfer Assessment Comments Mobility Comments global category manager talked to PT to ask what time PT will be able to come see the pt. informed family service caseworker that PT will see pt sometime this afternoon. family service caseworker informed pt's son that PT will see pt this afternoon. Checked with nurse before eval and nurse informed that pt was asking when is PT coming to see her. checked on pt and son in room. obtained PLOF and home set up . pt is [place] and has confusion . pt's friend stated that he can put in anything that pt needs at home. BP 112/82. completed heel slides prior to mobility and pt with increase LE guarding needing assist with moving RLE . pt needing increase rest breaks in between. instructed pt to sit on EOB. pt went from supine to long sitting. max A for moving LE but unable to complete. c/o increase pain. nurse in room and provided pt with more pain meds. pt stated that it is too soon to move and she did not know. informed pt and son that family service caseworker informed PT that they want to been seen today. Son stated that he wants to be in with pt during eval just to talk and was not aware that pt has to move. informed pt and son that PT eval involves mobility. pt declined further mobility and wants to lay back in bed. positioned pt in bed max A x 2 and max cues. call light and table placed within reach. family does not want pt to go to SNF. M5 PT-IP Objective Assessments Start: 05/25/24 17:12 Freq: NEEDED Status: Active Protocol: Document 05/25/24 15:40 AB (Rec: 05/25/24 17:30 AB [id number]) Orientation Orientation/Cognition Level of Alertness Confusional State Orientation Name,Place,Situation Language Function Ability Hard of Hearing Safety Awareness Decreased Safety Awareness Memory Description Short Term Impaired Gross Range of Motion Lower Extremity ROM Impairments increase RLE guarding limiting movement Strength Comments Strength Comments unable to move RLE in bed without assist; unable to complete MMT due to guarding Muscle Tone Muscle Tone WNL Yes M6 PT-IP Treatment Start: 05/25/24 17:12 Freq: NEEDED Status: Active Protocol: Document 05/25/24 15:40 AB (Rec: 05/25/24 17:30 AB [id number]) Physical Therapy Treatment Exercises Exercises Heel Slides Education Education Provided Precautions,Weight Bearing Status,Post-Op Packet,Safety M7 PT-IP Assessment and Plan Start: 05/25/24 17:12 Freq: NEEDED Status: Active Protocol: Document 05/25/24 15:40 AB (Rec: 05/25/24 17:30 AB [id number]) PT Summary Assessment and Plan Potential Rehabilitation Potential Fair Status of Condition at Evaluation Evolving Summary Impairments Pain,ROM,Strength,Balance, Coordination,Sensation,Tone, Cognition,Bed Mobility, Transfers,Gait,Activity Tolerance Assessment Summary pt is an 83 y/o F s/p fall and sustain a R hip fx and underwent R hip IM nailing. pt is WBAT on RLE. pt with c/o increase pain affecting mobility and was not able to tolerate much activity. pt was only able to long sit on the bed. will continue to assess progress for safety d/c plan but pt and family does not want pt to go to SNF. Goals Bed Mobility Goal Minimal Assistance Transfer Goal Minimal Assistance,Front Wheeled Walker Gait Goal Minimal Assistance,Front Wheel Walker Gait Distance 50 Other Goals improve bed mobility, transfers, ambulation using FWW SBA ~ 150 ft Days to Meet Goals 10 Frequency of Treatment Other frequency 1-2x/day Treatment Plan Physical Therapy Treatment Plan Bed Mobility Training,Transfer Training,Gait Training, Therapeutic Exercise,Balance Retraining,Post Op Education, Discharge Planning,Hot or Cold Pack,Neuromuscular Re-ed, Coordination Retraining,Manual Therapy Weight Bearing Status Weight Bearing Status Weight Bear as Tolerated Allowed Weight Bearing Amount (enter % RLE WBAT or #) (%) Recommendations To Nursing Amount of Assist Needed Mechanical Lift Discharge Recommendations PT Discharge Recommendations Home with 20/02 Assist Available,Home Health,SNF Rehab,Home vs SNF Transportation Needs at Discharge Private Vehicle,Wheelchair/ Cabulance
[2024-05-25] MEDS: CALCIUM CARBONATE 500 MG TAB 1000 MG PO (15:57)
[2024-05-25] MEDS: ONDANSETRON 4 MG/2 ML INJ IV (16:30)
[2024-05-25] MEDS: ACETAMINOPHEN 325 MG TABLET 650 MG PO (18:15)
[2024-05-25] MEDS: LACTATED RINGERS 1,000 ML 100 ML IV (20:03)
[2024-05-25] MEDS: DOCUSATE 100 MG CAPSULE PO (20:38)
[2024-05-25] MEDS: ASPIRIN EC 81 MG TABLET PO (20:38)
[2024-05-26] MEDS: CEFAZOLIN 2 GM/100 ML PREMIX 100 ML IV (01:10)
[2024-05-26 03:30] VITALS: BP 107/43; PULSE 65; RESP 16; TEMP 36.7; O2SAT 94
[2024-05-26] MEDS: cefTRIAXone 1,000 MG in SODIUM CHLORIDE 0.9% 100 ML 200 MG IV (05:19)
[2024-05-26 05:48] LABS: Add Manual Diff / Slide Review NO; Basophils Absolute Auto 0 /uL (0-100); Basophils Percent Auto 0.5 % (0-2); Eosinophils Absolute Auto 100 /uL (0-450); Eosinophils Percent Auto 1.8 % (2-4); Hematocrit 29.3 % (36-46); Hemoglobin 9.9 g/dL (12.0-16.0); Lymphocytes Absolute Auto 700 /uL (1100-4500); Lymphocytes Percent Auto 14.6 % (25-40); Mean Corpuscular HGB Conc 33.8 % (30-36); Mean Corpuscular Hemoglobin 31.8 PG (26-34); Mean Corpuscular Volume 93.9 fL (80-100); Monocytes Absolute Auto 400 /uL (0-900); Monocytes Percent Auto 8.6 % (3-14); Neutrophils Absolute Auto 3800 /uL (1500-7000); Neutrophils Percent Auto 74.5 % (50-75); Platelet Count 132 X10^3/uL (150-400); Red Blood Cell Count 3.12 X10^6/uL (4.0-5.2); Red Cell Distribution Width 14.5 % (11.6-14.8); White Blood Cell Count 5.1 X10^3/uL (4.5-11.0)
[2024-05-26 05:55] LABS: BUN Creatinine Ratio 18.2 (6-22); Blood Urea Nitrogen 10 mg/dL (7-17); Calcium 8.4 mg/dL (8.4-10.2); Carbon Dioxide 28 mmol/L (22-32); Chloride 100 mmol/L (98-107); Estimated Glomerular Filt Rate > 60 mL/min (>60); Glucose 101 mg/dL (80-110); HEMOLYSIS < 15 (0-50); Potassium 4.6 mmol/L (3.4-5.1); Sodium 128 mmol/L (137-145)
[2024-05-26] MEDS: HYDROCODONE/ACET 5/325 TABLET 2 TAB PO ×3 (06:58→14:29)
[2024-05-26 07:00] VITALS: BP 94/59; PULSE 69; RESP 16; TEMP 36.7; O2SAT 97
[2024-05-26] MEDS: ASPIRIN EC 81 MG TABLET PO ×2 (08:24→21:22)
[2024-05-26] MEDS: DOCUSATE 100 MG CAPSULE PO ×2 (08:24→21:22)
--- NOTE | 2024-05-26 09:52 | PT.IPTN ---
Current Diagnoses Fracture of unspecified part of neck of right femur, initial encounter for closed fracture (05/25/24) Surgery Performed Operation Date: 05/25/24 10:00 Actual Procedures p Intramedullary Nailing Femur(Right) - Aidan Rivera MD Physical Therapy Treatment Note M2 PT-IP Current Condition Start: 05/25/24 17:12 Freq: NEEDED Status: Active Protocol: Document 05/25/24 15:40 AB (Rec: 05/25/24 17:30 AB [id number]) Physical Therapy Current Condition Current Condition Evaluation Date 05/25/24 Treatment Diagnosis s/p R hip ORIF; difficulty in walking Onset Date 05/25/24 M3 PT-IP Subjective Start: 05/25/24 17:12 Freq: NEEDED Status: Active Protocol: Document 05/26/24 09:20 KS (Rec: 05/26/24 10:56 KS [id number]) Subjective Physical Therapy Visit Type Type Treatment Note Visit Start Time 09:20 Visit Stop Time 09:52 Number of GOAT DRIVER Visits 1 Therapy Pain Assessment Pain When Pain Assessed After Treatment Pain Present Pain Present Denied Pain M4 PT-IP Mobility and Gait Start: 05/25/24 17:12 Freq: NEEDED Status: Active Protocol: Document 05/26/24 09:20 KS (Rec: 05/26/24 10:56 KS [id number]) PT-Bed Mobility Assessment Supine to Sit Supine to Sit Moderate Assistance,1 Person Assistance,Head of Bed Elevated,Bedrails Sit to Supine Sit to Supine Maximum Assistance,1 Person Assistance Scooting Scooting to Edge of Bed Minimal Assistance PT-Transfer Assessment Sit to and From Stand Sit to and from Stand Maximum Assistance,1 Person Assistance,Use of Upper Extremities Equipment Transfer Assistive Device Gait Belt,Front Wheeled Walker Transfers Transfer Destination Bed Transfer Technique lateral steps Transfer Ability Level of Assist Moderate Assistance,1 Person Assistance,Use of Upper Extremities Comments Mobility Comments Pt in bed upon arrival, seemingly anxious but willing to participate. Reports she has been doing exericses in bed as tolerated. Mod A for sup<>Sit, Min A for scooting EOB. Pt requires increased time and cues to complete tasks but follows appropriately. Mod A fot sit<> stand w/ FWW. Pt does tend to hold her breath requiring cues , but O2 recovers quickly. She was bale to take ~6 steps laterally towards HOB w/ Mod A w/ FWW mgmt. Pt very fatigued following and requested to lay down. Max A for sit<>Sup for LE mgmt. Pt left in bed w/ all needs in reach and O2 94 %. Gait Assessment Gait Gait Assistance Required: Moderate Assistance,1 Person Assist Distance (Feet) 6 Able to Maintain Weight Bearing Status Yes During Gait Assistive Devices Assistive Device Front Wheeled Walker Factors Limiting Gait Function Factors Limiting Gait Function Decreased Activity Tolerance, Decreased Strength,Limited Range of Motion,Pain,Poor Balance,Poor Safety Awareness, Respiratory Distress Comments Gait Comments See mobility. PT-Balance Assessment Sitting Balance and Reactions Static Sitting Balance Ability Good Dynamic Sitting Balance Ability Fair Standing Balance and Reactions Static Standing Balance Ability Fair Dynamic Standing Balance Ability Poor Device Used FWW M5 PT-IP Objective Assessments Start: 05/25/24 17:12 Freq: NEEDED Status: Active Protocol: Document 05/25/24 15:40 AB (Rec: 05/25/24 17:30 AB [id number]) Orientation Orientation/Cognition Level of Alertness Confusional State Orientation Name,Place,Situation Language Function Ability Hard of Hearing Safety Awareness Decreased Safety Awareness Memory Description Short Term Impaired Gross Range of Motion Lower Extremity ROM Impairments increase RLE guarding limiting movement Strength Comments Strength Comments unable to move RLE in bed without assist; unable to complete MMT due to guarding Muscle Tone Muscle Tone WNL Yes M6 PT-IP Treatment Start: 05/25/24 17:12 Freq: NEEDED Status: Active Protocol: Document 05/26/24 09:20 KS (Rec: 05/26/24 10:56 [place] [id number]) Physical Therapy Treatment Exercises Exercises Ankle Pumps,Gluteal Sets,Quad Sets,Heel Slides Education Education Provided Precautions,Weight Bearing Status,Post-Op Packet,Safety M7 PT-IP Assessment and Plan Start: 05/25/24 17:12 Freq: NEEDED Status: Active Protocol: Document 05/26/24 09:20 KS (Rec: 05/26/24 10:56 KS [id number]) PT Summary Assessment and Plan Potential Rehabilitation Potential Fair Summary Impairments Pain,ROM,Strength,Balance, Coordination,Sensation,Tone, Cognition,Bed Mobility, Transfers,Gait,Activity Tolerance Progress Towards Goals Slow Progress due to Activity Tolerance Assessment Summary Pt was able to get out of bed and weightbear today with Mod A. She took 6 lateral steps w/ FWW. Quick approach to fatigue, but showing improvement from yesterday and pain is well managed today. Will continue to assess progress for safety d/c plan but pt and family does not want pt to go to SNF. Goals Bed Mobility Goal Minimal Assistance Transfer Goal Minimal Assistance,Front Wheeled Walker Gait Goal Minimal Assistance,Front Wheel Walker Gait Distance 50 Other Goals improve bed mobility, transfers, ambulation using FWW SBA ~ 150 ft Days to Meet Goals 10 Frequency of Treatment Other frequency 1-2x/day Treatment Plan Physical Therapy Treatment Plan Bed Mobility Training,Transfer Training,Gait Training, Therapeutic Exercise,Balance Retraining,Post Op Education, Discharge Planning,Hot or Cold Pack,Neuromuscular Re-ed, Coordination Retraining,Manual Therapy Weight Bearing Status Weight Bearing Status Weight Bear as Tolerated Allowed Weight Bearing Amount (enter % RLE WBAT or #) (%) Recommendations To Nursing Amount of Assist Needed 2 Person Assist Discharge Recommendations PT Discharge Recommendations Home with 20/02 Assist Available,Home Health,SNF Rehab,Home vs SNF Transportation Needs at Discharge Private Vehicle,Wheelchair/ Cabulance
--- NOTE | 2024-05-26 09:52 | PT.IPTN ---
Current Diagnoses Fracture of unspecified part of neck of right femur, initial encounter for closed fracture (05/25/24) Surgery Performed Operation Date: 05/25/24 10:00 Actual Procedures p Intramedullary Nailing Femur(Right) - Aidan Rivera MD Physical Therapy Treatment Note M2 PT-IP Current Condition Start: 05/25/24 17:12 Freq: NEEDED Status: Active Protocol: Document 05/25/24 15:40 AB (Rec: 05/25/24 17:30 AB [id number]) Physical Therapy Current Condition Current Condition Evaluation Date 05/25/24 Treatment Diagnosis s/p R hip ORIF; difficulty in walking Onset Date 05/25/24 M3 PT-IP Subjective Start: 05/25/24 17:12 Freq: NEEDED Status: Active Protocol: Document 05/26/24 09:20 KS (Rec: 05/26/24 10:56 KS [id number]) Subjective Physical Therapy Visit Type Type Treatment Note Visit Start Time 09:20 Visit Stop Time 09:52 Number of CONTROL CLERK REPAIRS Visits 1 Therapy Pain Assessment Pain When Pain Assessed After Treatment Pain Present Pain Present Denied Pain M4 PT-IP Mobility and Gait Start: 05/25/24 17:12 Freq: NEEDED Status: Active Protocol: Document 05/26/24 09:20 KS (Rec: 05/26/24 10:56 KS [id number]) PT-Bed Mobility Assessment Supine to Sit Supine to Sit Moderate Assistance,1 Person Assistance,Head of Bed Elevated,Bedrails Sit to Supine Sit to Supine Maximum Assistance,1 Person Assistance Scooting Scooting to Edge of Bed Minimal Assistance PT-Transfer Assessment Sit to and From Stand Sit to and from Stand Maximum Assistance,1 Person Assistance,Use of Upper Extremities Equipment Transfer Assistive Device Gait Belt,Front Wheeled Walker Transfers Transfer Destination Bed Transfer Technique lateral steps Transfer Ability Level of Assist Moderate Assistance,1 Person Assistance,Use of Upper Extremities Comments Mobility Comments Pt in bed upon arrival, seemingly anxious but willing to participate. Reports she has been doing exericses in bed as tolerated. Mod A for sup<>Sit, Min A for scooting EOB. Pt requires increased time and cues to complete tasks but follows appropriately. Mod A fot sit<> stand w/ FWW. Pt does tend to hold her breath requiring cues , but O2 recovers quickly. She was bale to take ~6 steps laterally towards HOB w/ Mod A w/ FWW mgmt. Pt very fatigued following and requested to lay down. Max A for sit<>Sup for LE mgmt. Pt left in bed w/ all needs in reach and O2 94 %. Gait Assessment Gait Gait Assistance Required: Moderate Assistance,1 Person Assist Distance (Feet) 6 Able to Maintain Weight Bearing Status Yes During Gait Assistive Devices Assistive Device Front Wheeled Walker Factors Limiting Gait Function Factors Limiting Gait Function Decreased Activity Tolerance, Decreased Strength,Limited Range of Motion,Pain,Poor Balance,Poor Safety Awareness, Respiratory Distress Comments Gait Comments See mobility. PT-Balance Assessment Sitting Balance and Reactions Static Sitting Balance Ability Good Dynamic Sitting Balance Ability Fair Standing Balance and Reactions Static Standing Balance Ability Fair Dynamic Standing Balance Ability Poor Device Used FWW M5 PT-IP Objective Assessments Start: 05/25/24 17:12 Freq: NEEDED Status: Active Protocol: Document 05/25/24 15:40 AB (Rec: 05/25/24 17:30 AB [id number]) Orientation Orientation/Cognition Level of Alertness Confusional State Orientation Name,Place,Situation Language Function Ability Hard of Hearing Safety Awareness Decreased Safety Awareness Memory Description Short Term Impaired Gross Range of Motion Lower Extremity ROM Impairments increase RLE guarding limiting movement Strength Comments Strength Comments unable to move RLE in bed without assist; unable to complete MMT due to guarding Muscle Tone Muscle Tone WNL Yes M6 PT-IP Treatment Start: 05/25/24 17:12 Freq: NEEDED Status: Active Protocol: Document 05/26/24 09:20 KS (Rec: 05/26/24 10:56 MT [id number]) Physical Therapy Treatment Exercises Exercises Ankle Pumps,Gluteal Sets,Quad Sets,Heel Slides Education Education Provided Precautions,Weight Bearing Status,Post-Op Packet,Safety M7 PT-IP Assessment and Plan Start: 05/25/24 17:12 Freq: NEEDED Status: Active Protocol: Document 05/26/24 09:20 KS (Rec: 05/26/24 10:56 KS [id number]) PT Summary Assessment and Plan Potential Rehabilitation Potential Fair Summary Impairments Pain,ROM,Strength,Balance, Coordination,Sensation,Tone, Cognition,Bed Mobility, Transfers,Gait,Activity Tolerance Progress Towards Goals Slow Progress due to Activity Tolerance Assessment Summary Pt was able to get out of bed and weightbear today with Mod A. She took 6 lateral steps w/ FWW. Quick approach to fatigue, but showing improvement from yesterday and pain is well managed today. Will continue to assess progress for safety d/c plan but pt and family does not want pt to go to SNF. Goals Bed Mobility Goal Minimal Assistance Transfer Goal Minimal Assistance,Front Wheeled Walker Gait Goal Minimal Assistance,Front Wheel Walker Gait Distance 50 Other Goals improve bed mobility, transfers, ambulation using FWW SBA ~ 150 ft Days to Meet Goals 10 Frequency of Treatment Other frequency 1-2x/day Treatment Plan Physical Therapy Treatment Plan Bed Mobility Training,Transfer Training,Gait Training, Therapeutic Exercise,Balance Retraining,Post Op Education, Discharge Planning,Hot or Cold Pack,Neuromuscular Re-ed, Coordination Retraining,Manual Therapy Weight Bearing Status Weight Bearing Status Weight Bear as Tolerated Allowed Weight Bearing Amount (enter % RLE WBAT or #) (%) Recommendations To Nursing Amount of Assist Needed 2 Person Assist Discharge Recommendations PT Discharge Recommendations Home with 20/02 Assist Available,Home Health,SNF Rehab,Home vs SNF Transportation Needs at Discharge Private Vehicle,Wheelchair/ Cabulance
[2024-05-26] MEDS: CALCIUM CARBONATE 500 MG TAB 1000 MG PO (12:13)
--- NOTE | 2024-05-26 12:53 | P.PN_ITS ---
Subjective Subjective Interval history: 83 F admitted with a R hip fracture, POD#1, still requiring minimal supplemental oxygen today but denies chest pain, shortness of breath. Exam Vital Signs (past 8 hours): - 05/26/24 07:00 05/26/24 08:00 Temperature 98.0 F Pulse Rate 69 Respiratory Rate 16 Blood Pressure 94/59 L Pulse Oximetry 97 Oxygen Delivery Method Nasal Cannula Oxygen Flow Rate 0 Fraction of Inspired Oxygen 24 SaO2/FiO2 Ratio 416 Oxygen Delivery Method Nasal Cannula Oxygen Flow Rate 0 Narrative Exam Narrative: Gen: NAD, alert CV: RRR no m/r/g Pulm: CTA b/l Ext: no edema Neuro: moves all extremities equally, no obvious focal deficits Objective Labs 05/26/24 05:30 05/26/24 05:30 Labs: Laboratory Results - last 24 hr 05/26/24 05:30 WBC 5.1 RBC 3.12 L Hgb 9.9 L Hct 29.3 L MCV 93.9 MCH 31.8 MCHC 33.8 RDW 14.5 Plt Count 132 L Neut % (Auto) 74.5 Lymph % (Auto) 14.6 L [place] % (Auto) 8.6 Eos % (Auto) 1.8 L Baso % (Auto) 0.5 Neut # (Auto) 3800 Lymph # (Auto) 700 L [place] # (Auto) 400 Eos # (Auto) 100 Baso # (Auto) 0 Sodium 128 L Potassium 4.6 Chloride 100 Carbon Dioxide 28 BUN 10 Creatinine 0.55 Estimated GFR > 60 BUN/Creatinine Ratio 18.2 Glucose 101 Calcium 8.4 PFSH Social History household members: friend(s) Smoking Status: Never smoker Assessment & Plan Assessment & Plan narrative: 1. Acute pathologic R intertrochanteric femur fracture, secondary to osteoporosis, present on admission - s/p intermedullary nailing today with orthopedics - PT/OT to continue - pain control as needed - Patient does not wish to go to SNF, will see how therapies go - Imbalance / fall may be in part due to acute cystitis. 2. Acute cystitis, present on admission - 3 days ceftriaxone. - Follow up urine cultures, currently with gram negative bacilli. 3. Hyponatremia, unknown chronicity, present on admission - Na 128 today, Stopped IV fluids given shortage, continue to encourage oral rehydration. - assess with urine sodium and osm to see if hypovolemia present or SIADH. If SIADH will stop NSAIDs. 4. Acute respiratory failure with hypoxia. - will further assess with CXR to evaluate for PNA or fluid overload, though clinically there is no evidence. Likely atelectasis. Continue IS. 5. Acute blood loss anemia secondary to surgical procedure - Hg down to 9.9 today from 12 yesterday. Likely secondary to surgical procedure. Goal Hg >7. Continue to monitor with daily cbc. Code: DNR, surrogate is patient's son DVT: Per orthopedics, ASA BID I have utilized all available immediate resources to obtain, update, or review the patient's current medications. Dispo: patient admitted under inpatient status. Likely discharge home with home health in 1-2 days, depending mobility, resolution of hypoxia. Additional history obtained via discussions with the overnight provider and orthopedic surgeon. These discussions contributed to the creation of the above assessment and plan. I have reviewed patient's presenting documentation, labs, and imaging personally. Time-Based Coding :: [TOTAL MINUTES] spent with patient and on the chart (including review of chart, obtaining history, exam, reviewing outside data, placing orders, documenting exam and treatment plan, and counseling patient) on [DATE].
--- NOTE | 2024-05-26 13:04 | DI.RAD.S_ITS ---
PROCEDURE: XR CHEST 1V INDICATIONS: hypoxic respiratory failure TECHNIQUE: One view of the chest was acquired. COMPARISON: [facility], CR, XR CHEST 1V, 05/25/2024, 1:18. FINDINGS: Surgical changes and devices: None. Lungs and pleura: Generalized interstitial prominence can be seen. No focal infiltrates are seen. No pleural effusions or pneumothorax. Mediastinum: The cardiac contours are moderately enlarged. The aorta demonstrates calcification and tortuosity. Bones and chest wall: No suspicious bony lesions. Age-appropriate bony degenerative changes are seen. Overlying soft tissues appear unremarkable. IMPRESSION: Cardiomegaly with mild generalized pulmonary interstitial prominence. Mild/early CHF is suspected. Dictated by: Shun Page M.D. on 05/26/2024 at 12:37 Approved by: Shun Page M.D. on 05/26/2024 at 12:39
--- NOTE | 2024-05-26 14:38 | CM.DPNOTE ---
DCP Cont Met w/patient and her son Felix Vincent [phone] to review discharge plan. Patient plans to discharge home with her friends Evert and his Ivelisse (an OBGYN). Patient moved into her friend's home days ago. Discussed home health services, patient has no agency preference, agreeable to HH and requests all disciplines available. F2F and HH order completed. Referral not made today. Plan: Discharge home with friends and HH services via family or friend(s) to transport home. Patient does not want to discharge to SNF. HH referral needed before DC. Son requests updates by phone Monday. AQUILINO
[2024-05-26 15:01] LABS: Sodium Urine Random 42 mmol/L (30-90)
[2024-05-26] MEDS: IBUPROFEN 600 MG TABLET PO (17:52)
[2024-05-26 19:00] VITALS: BP 126/80; PULSE 104; RESP 18; TEMP 37.9; O2SAT 99
[2024-05-26 21:00] VITALS: TEMP 37.2
[2024-05-27] MEDS: ACETAMINOPHEN 325 MG TABLET 650 MG PO ×3 (00:02→10:23)
[2024-05-27] MEDS: IBUPROFEN 600 MG TABLET PO ×3 (00:02→10:23)
[2024-05-27 02:06] VITALS: O2SAT 99
[2024-05-27] MEDS: cefTRIAXone 1,000 MG in SODIUM CHLORIDE 0.9% 100 ML 200 MG IV (05:25)
[2024-05-27 06:14] LABS: Add Manual Diff / Slide Review NO; Basophils Absolute Auto 0 /uL (0-100); Basophils Percent Auto 0.8 % (0-2); Eosinophils Absolute Auto 200 /uL (0-450); Eosinophils Percent Auto 3.6 % (2-4); Hematocrit 27.9 % (36-46); Hemoglobin 9.7 g/dL (12.0-16.0); Lymphocytes Absolute Auto 700 /uL (1100-4500); Lymphocytes Percent Auto 14.4 % (25-40); Mean Corpuscular HGB Conc 34.7 % (30-36); Mean Corpuscular Hemoglobin 32.5 PG (26-34); Mean Corpuscular Volume 93.8 fL (80-100); Monocytes Absolute Auto 500 /uL (0-900); Monocytes Percent Auto 11.3 % (3-14); Neutrophils Absolute Auto 3300 /uL (1500-7000); Neutrophils Percent Auto 69.9 % (50-75); Platelet Count 133 X10^3/uL (150-400); Red Blood Cell Count 2.98 X10^6/uL (4.0-5.2); Red Cell Distribution Width 14.2 % (11.6-14.8); White Blood Cell Count 4.7 X10^3/uL (4.5-11.0)
[2024-05-27 06:27] LABS: BUN Creatinine Ratio 11.8 (6-22); Blood Urea Nitrogen 6 mg/dL (7-17); Calcium 8.1 mg/dL (8.4-10.2); Carbon Dioxide 30 mmol/L (22-32); Chloride 99 mmol/L (98-107); Estimated Glomerular Filt Rate > 60 mL/min (>60); Glucose 94 mg/dL (80-110); HEMOLYSIS < 15 (0-50); Potassium 4.3 mmol/L (3.4-5.1); Sodium 129 mmol/L (137-145)
[2024-05-27 06:47] LABS: NT-proBNP (BNP-Adult 18+) 857 pg/mL (<450)
--- NOTE | 2024-05-27 07:00 | PM.PNPO.1 ---
Subjective Subjective Date Patient Seen: 05/27/24 Time Patient Seen: 07:00 Interval history: Pt sitting up in bed, performing exercises with a strap. She lives with a physician and has lots of local healthcare support around her home in [place] and plans to discharge home. Good pain control. Exam Vital Signs (past 8 hours): - 05/27/24 02:06 Pulse Oximetry 99 Oxygen Delivery Method Nasal Cannula Oxygen Flow Rate 1 Fraction of Inspired Oxygen 24 Fraction of Inspired Oxygen 24 SaO2/FiO2 Ratio 412 Oxygen Delivery Method Nasal Cannula Oxygen Flow Rate 1 Narrative Exam Narrative: 5/5 strength in hip flexors, quadriceps, hamstrings, DF, PF, EHL on right. Sensation to light touch intact throughout RLE, calf soft and compressible. Gauze placed intraoperatively is CDI. Objective Labs 05/27/24 06:01 05/27/24 06:01 Labs: Laboratory Results - last 24 hr 05/26/24 05/27/24 14:10 06:01 WBC 4.7 RBC 2.98 L Hgb 9.7 L Hct 27.9 L MCV 93.8 MCH 32.5 MCHC 34.7 RDW 14.2 Plt Count 133 L Neut % (Auto) 69.9 Lymph % (Auto) 14.4 L [place] % (Auto) 11.3 Eos % (Auto) 3.6 Baso % (Auto) 0.8 Neut # (Auto) 3300 Lymph # (Auto) 700 L [place] # (Auto) 500 Eos # (Auto) 200 Baso # (Auto) 0 Sodium 129 L Potassium 4.3 Chloride 99 Carbon Dioxide 30 BUN 6 L Creatinine 0.51 L Estimated GFR > 60 BUN/Creatinine Ratio 11.8 Glucose 94 Calcium 8.1 L NT-Pro-B Natriuret Pep 857 H Ur Random Sodium 42 PFSH Social History household members: friend(s) Smoking Status: Never smoker Assessment & Plan Post-op Assessment and plan (1) Status post hip surgery: Assessment and Plan narrative: 1) WBAT to RLE. 2) F/u w/ ortho in 2 weeks for staple removal, repeat imaging. 3) Disposition, pain management, VTE prophylaxis per hospitalist service. Currently receiving ASA 81mg BID, recommend continuing x 4 weeks postop. Postoperative Procedures: Procedures Operation Date: 05/25/24 10:00 Actual Procedure Side Surgeon p Intramedullary Nailing Femur Right Aidan Rivera MD Postoperative day: 2
[2024-05-27 07:47] VITALS: TEMP 37.4; O2SAT 93
[2024-05-27 08:00] VITALS: BP 129/82; PULSE 88; RESP 16; TEMP 36.8; O2SAT 93
[2024-05-27] MEDS: polyethylene glycoL 3350 17 GM POWD.PACK PO (08:08)
[2024-05-27] MEDS: DOCUSATE 100 MG CAPSULE PO (08:08)
[2024-05-27] MEDS: ASPIRIN EC 81 MG TABLET PO (08:08)
--- NOTE | 2024-05-27 09:35 | OT.IP.EVAL ---
Current Diagnoses Fracture of unspecified part of neck of right femur, initial encounter for closed fracture (05/25/24) Other specified postprocedural states (05/25/24) Surgery Performed Operation Date: 05/25/24 10:00 Actual Procedures p Intramedullary Nailing Femur(Right) - Aidan Rivera MD Occupational Therapy Inpatient Evaluation/Re-Eval M1 PT/OT-IP Prior Functional Status Start: 05/25/24 17:12 Freq: NEEDED Status: Complete Protocol: Document 05/25/24 15:40 AB (Rec: 05/25/24 17:30 AB [id number]) Medical Review Prior Functional Status Medical History Reviewed Yes Communication able to make needs known but with confusion Mobility and Gait pt stated that she was independent with all mobilities and ambulation without AD Social History Household Members friend(s) Living Arrangements House Number of Floors (Floors) One Floor Number of Stairs To Enter/Railing? ramp to enter Home Environment High Toilet,Walk in Shower, Bidet Home Equipment Hand Held Shower Additional Social History Comment pt lives with her friends who can provide her assistance pt's friend that he will put in grab bars in the toilet and shower pt's son stated that he will get a FWW for pt M1 PT/OT-IP Prior Functional Status Start: 05/27/24 10:04 Freq: NEEDED Status: Active Protocol: Document 05/27/24 10:05 [facility] (Rec: 05/27/24 10:17 [facility] [id number]) Medical Review Prior Functional Status Medical History Reviewed Yes Communication able to make needs known but with confusion Mobility and Gait pt stated that she was independent with all mobilities and ambulation without AD Activities of Daily Living and IADL's Pt was completely independent with all needs. Social History Household Members friend(s) Living Arrangements House Number of Floors (Floors) One Floor Number of Stairs To Enter/Railing? ramp to enter Home Environment High Toilet,Walk in Shower, Bidet Home Equipment Hand Held Shower Additional Social History Comment pt lives with her friends who can provide her assistance pt's friend that he will put in grab bars in the toilet and shower pt's son stated that he will get a FWW for pt M2 OT-IP Current Condition Start: 05/27/24 10:04 Freq: Status: Active Protocol: Document 05/27/24 10:05 [facility] (Rec: 05/27/24 10:17 [facility] [id number]) Occupational Therapy Current Condition Current Condition Evaluation Date 05/27/24 Treatment Diagnosis S/P R hip ORIF Diagnosis Onset Date 05/25/24 Weight Bearing Status Weight Bearing Status Weight Bear as Tolerated M3 OT- IP Subjective and Pain Start: 05/27/24 10:04 Freq: Status: Active Protocol: Document 05/27/24 10:05 [facility] (Rec: 05/27/24 10:17 [facility] [id number]) OT- Subjective Occupational Therapy Visit Type Type Initial Evaluation Visit Start Time 09:03 Visit Stop Time 09:35 Occupational Therapy Visit Comments Patient Comments Pt agreed to get up to use the bathroom and brush her teeth. Patient/Caregiver Goals TO go home. OT Pain Assessment Pain When Pain Assessed At Rest Pain Present Pain Present Denied Pain M4 OT- IP ADL's Start: 05/27/24 10:04 Freq: Status: Active Protocol: Document 05/27/24 10:05 [facility] (Rec: 05/27/24 10:17 [facility] [id number]) OT PAI-Wmgd-Elmhqvt General Evaluation Self-Feeding Ability Independent OT ADL-Grooming General Evaluation Grooming Ability Standby Assistance Areas Needing Assistance Retrieving/Set-up of Grooming Items OT ADL-Oral Care General Eval Oral Care Ability Independent OT ADL-Dressing General Eval Lower Body Dressing Ability Minimal Assistance Comments OT Dressing Comments Assist for socks. OT ADL-Toileting General Evaluation Toileting Ability Standby Assistance Comments OT Toileting Comments Educated to get a BSC so easier to come to stand and use of pad/brief at night. OT ADL-Bathing Comments OT Bathing Comments Pt will benefit from assist. M5 OT- IP IADL's Start: 05/27/24 10:04 Freq: Status: Active Protocol: Document 05/27/24 10:05 [facility] (Rec: 05/27/24 10:17 [facility] [id number]) OT-Instrumental Activities of Daily Living Home Safety Awareness Awareness of Need for Assistance at Home Good Awareness Ability to Problem Solve Emergency Able to Problem Solve Situations Home Safety Comments Pt states has friend to assist with all her needs. M6 OT- IP Functional Cognition Start: 05/27/24 10:04 Freq: Status: Active Protocol: Document 05/27/24 10:05 [facility] (Rec: 05/27/24 10:17 [facility] [id number]) Cognitive Factors Limiting Selfcare Function Cognitive Ability Level of Alertness Alert Patient Orientation Name,Age,Birthday,Month,Date, Year,Day of Week,Place, Situation Attention Span Ability Capable of Focused Attention, Capable of Sustained Attention Cognitive Comments Cognitive Assessment Comments Pt just needing cues to slow down and push up from the bed, armrests versus grabbing the FWW to stand. OT- Vision and Hearing OT- Hearing Assessment OT- Hearing Assessment Hearing Impaired,Use of Hearing Aids OT- Vision Assessment Visual Acuity Glasses All The Time Visual Attentiveness WFL Occular Pursuits WFL M7 OT- IP Mobility and Balance Start: 05/27/24 10:04 Freq: Status: Active Protocol: Document 05/27/24 10:05 [facility] (Rec: 05/27/24 10:17 [facility] [id number]) OT- Bed Mobility Assessment Supine to Sit Supine to Sit Assist Standby Assistance OT-Transfer Assessment Sit to and From Stand Sit to and from Stand Contact Guard Assistance, Minimal Assistance Transfers Transfer Ability Standby Assistance,Contact Guard Assistance Technique Transfer Destination Bed,Chair,Toilet Transfer Technique Stand Step Pivot Devices Transfer Assistive Devices Gait Belt,Front Wheeled Walker Comments Mobility Comments Pt needing BRAN to stand from lower surfaces. SBA when having surface to stand up from. Educated to move the FWW first and then her RLE and then LLE. OT- Balance Assessment Sitting Balance and Reactions Static Sitting Balance Ability Normal Dynamic Sitting Balance Ability Normal Standing Balance and Reactions Static Standing Balance Ability Good Dynamic Standing Balance Ability Fair M8 OT- IP Objective Assessments Start: 05/27/24 10:04 Freq: Status: Active Protocol: Document 05/27/24 10:05 [facility] (Rec: 05/27/24 10:17 [facility] [id number]) OT Gross Range of Motion Upper Extremity Range of Motion Assessment Within Functional Limits OT Strength Upper Extremity Strength Assessment Within Functional Limits M9 OT- IP Assessment and Plan Start: 05/27/24 10:04 Freq: Status: Active Protocol: Document 05/27/24 10:05 [facility] (Rec: 05/27/24 10:17 [facility] [id number]) OT Summary Assessment and Plan Potential Rehabilitation Potential Excellent Analytic Complexity at Evaluation Low Summary OT Impairments Balance,Functional Mobility, Dressing,Bathing,Shower Transfers Progress Towards Goals Progressing Toward Goals Assessment Summary Pt low complexity and moving well and to have 24/7 assist at home and have HH. Suggested pt get a BSC for home use. Goals Dressing Goal Independent Toileting Goal Independent Bathing Goal Standby Assistance Toilet Transfer Goal Independent Shower Transfer Goal Standby Assistance Days to Meet Goals 3 Frequency of Treatment Frequency Of Treatment Once a Day Treatment Plan OT Treatment Plan ADL Training,Functional Mobility,Patient/Family Education,Discharge Planning Discharge Recommendations OT Discharge Recommendations Home with 24/7 Assist Available,Home Health Home Equipment Needs BSC Transportation Needs at Discharge Private Vehicle
--- NOTE | 2024-05-27 11:49 | P.DS_ITS ---
History of Present Illness History of Present Illness Date Patient Seen: 05/27/24 Time Patient Seen: 11:49 Chief complaint: fall right hip Narrative: From overnight provider, 83 year old female with no reported past medical history presents with a ground level fall. Per the patient's report, the patient had a mechanical fall at home. The patient fell onto her right side and landed on her right hip. The patient denies any LOC or head injury. The patient states that she does not have any other pain other than her right hip. The patient states the pain is severe and she is unable to bear weight on it. The patient denies any recent chest pain, fever, chills, nausea, vomiting or diarrhea. The patient also denies any shortness of breath or coughing. In our ER, the patient was hemodynamically stable. Labs only shows a sodium of 129 but other labs were relatively benign. EKGs and CXR does not show any acute findings. Imaging of hip shows right hip fracture. Orthopedic surgery consulted and recommended admission for plan for OR this morning. The patient was given IV prn Dilaudid. Interval History: Patient is now s/p repair with orthopedics this morning. Complains of hip pain, improved with medications. Denies chest pain, shortness of breath, dizziness. Very much does not wish to go to rehab, would like home health if needed. Discharge Providers Provider Date of admission: 05/25/24 02:32 Discharge Date: 05/27/24 Consults: 05/25/24 02:40 Consult to Occupational Therapy Evaluate & Treat Comment: Physician Instructions: Evaluate and treat 05/25/24 02:41 Consult to Physical Therapy Evaluate & Treat Comment: Physician Instructions: Evaluate and Treat 05/25/24 11:00 Consult to Discharge Planning Routine Comment: Consult to Occupational Therapy Evaluate & Treat Comment: Physician Instructions: Evaluate and treat Consult to Physical Therapy Evaluate & Treat Comment: Physician Instructions: post op JHONATHAN protocol 05/26/24 14:33 Consult to Home Health Routine Comment: Reason For Exam: Home health upon discharge 05/26/24 20:24 Consult to Orthopedic Surgery Routine Comment: Consulting Provider: Aidan Rivera Reason for consultation: Surgery Has provider been notified: Yes Discharge provider: Bryant Frazier DO Summary Hospital Course Discharge Diagnosis: 1. Acute pathologic R intertrochanteric femur fracture, secondary to osteoporosis, present on admission 2. Acute cystitis, present on admission, due to Klebsiella. 3. Hyponatremia, unknown chronicity, present on admission 4. Acute respiratory failure with hypoxia. 5. Acute blood loss anemia secondary to surgical procedure Hospital Course: This is an 83 year old female with no significant PMH who presented after a fall with a R intertrochanteric fracture. She was found to have acute cystitis, with urine cultures growing E. coli which may have contributed to her fall. She was treated with 3 days of a combination of cefazolin (from OR) and ceftriaxone over the course of her stay, cultures grew a sensitive Klebsiella. She remained hypoxic for a few days after surgery, but ultimately resolved after aggressive incentive spirometry. Imaging was performed which may have been indicative of fluid overload, but her hypoxia resolved without diuresis. Another possibility is fluid overload from IV fluids given for hyponatremia which improved and was stable at the time of discharge. Hg did drop as well after surgery, but was stable on the day of discharge without signs or symptoms of active bleeding. She will follow up with orthopedic surgery in clinic, and was discharged home with home health for ongoing therapies. Pain medication was sent to the local pharmacy and aspirin 81 mg BID was recommended for 6 weeks for DVT prophylaxis. Time Spent with Patient Time spent: Greater than 30 minutes Exam Vital Signs (past 8 hours): - 05/27/24 07:47 05/27/24 08:00 Temperature 99.3 F 98.3 F Pulse Rate 88 Respiratory Rate 16 Blood Pressure 129/82 Pulse Oximetry 93 93 Oxygen Flow Rate 0 0 Fraction of Inspired Oxygen 24 SaO2/FiO2 Ratio 412 Oxygen Delivery Method Nasal Cannula Oxygen Flow Rate 0 Narrative Exam Narrative: Gen: NAD, alert CV: RRR no m/r/g Pulm: CTA b/l Ext: no edema Neuro: moves all extremities equally, no obvious focal deficits Objective Labs 05/27/24 06:01 05/27/24 06:01 Labs: Laboratory Results - last 24 hr 05/26/24 05/27/24 14:10 06:01 WBC 4.7 RBC 2.98 L Hgb 9.7 L Hct 27.9 L MCV 93.8 MCH 32.5 MCHC 34.7 RDW 14.2 Plt Count 133 L Neut % (Auto) 69.9 Lymph % (Auto) 14.4 L [place] % (Auto) 11.3 Eos % (Auto) 3.6 Baso % (Auto) 0.8 Neut # (Auto) 3300 Lymph # (Auto) 700 L [place] # (Auto) 500 Eos # (Auto) 200 Baso # (Auto) 0 Sodium 129 L Potassium 4.3 Chloride 99 Carbon Dioxide 30 BUN 6 L Creatinine 0.51 L Estimated GFR > 60 BUN/Creatinine Ratio 11.8 Glucose 94 Calcium 8.1 L NT-Pro-B Natriuret Pep 857 H Ur Random Sodium 42 PFSH Social History household members: friend(s) Smoking Status: Never smoker Discharge Plan Discharge Plan Patient Disposition: Home Health Service Provider Discharge Comment: You were admitted to the hospital with a hip fracture. This was repaired with a nail with orthopedics. Follow up with the orthopedic surgeons in clinic as noted below. Pain medications sent to the pharmacy downstairs. Discharge orders & Medications Prescriptions: New acetaminophen 325 mg Tablet 650 mg PO Q6H Qty: 30 0RF aspirin 81 mg Tablet,Delayed Release (Dr/Ec) 81 mg PO BID Qty: 30 0RF hydrocodone-acetaminophen 5-325 mg Tablet 2 tab PO Q4H PRN (Reason: Pain, Severe (7-10)) 7 Days Qty: 40 0RF Continued multivit with min-folic acid [Adult Multivitamin Gummies] 120 mcg Tablet,Chewable 1 tab PO DAILY Follow up/Referrals: Aidan Rivera MD [Physician] - 2 Weeks (Follow up w/ PA in ortho clinic or Dr Rivera in 2 weeks for wound check and imaging.) Diet/Activity/Treatments Diet: Diet as Tolerated and Regular Activity: Weightbearing as tolerated. Cold/Heat Therapy: Ice to hip as needed for pain. Skin/Wound/Dressing Care Report to your healthcare provider any signs of infection, such as:: chills, fever, night sweats, unusual drainage and unusual redness Dressing: May shower, pat incision dry afterwards. Redress with clean, dry gauze. No bathing or otherwise soaking incision. Do not apply any creams, lotions, or ointments to incision. Visit Report/Discharge Packet Instructions: How to Prevent Falls, DI for Prescription Opioid Use Stand Alone Forms: Patient Portal/API, Stroke Signs & Symptoms
--- NOTE | 2024-05-27 12:29 | CM.DPC ---
DCP Discharge Home with HH Per MD and Ortho, pt medically stable to d/c home today with HH and assist and no identified barriers to discharge. Per PT, CG training scheduled for 1300 today with friend bedside and recommending home with assist and HH. [facility] referral made based on Vendor Calendar as pt and son had no HH preference and they confirm they can accept and faxed F2F and HH orders and d/c summary to review. SW met bedside with pt and explained role again and provided the [facility] brochure and pt confirms she is agreeable to d/c plan with her friends after CG training today and SW observed her ambulating SBA with walker in the room. Pt agreeable to SW updating her son/DPALEJANDRA [place] who had to return to [place] for work today. SW called son Felix and updated on above and answered questions and he remains agreeable with d/c home via friend POV and [facility] and outpt f/u with Ortho. Updated RN who will have son on speaker phone for d/c instructions as well. Penny Garcia MSW
--- NOTE | 2024-05-27 13:15 | OT.IP.TRT ---
Current Diagnoses Fracture of unspecified part of neck of right femur, initial encounter for closed fracture (05/25/24) Other specified postprocedural states (05/25/24) Surgery Performed Operation Date: 05/25/24 10:00 Actual Procedures p Intramedullary Nailing Femur(Right) - Aidan Rivera MD Occupational Therapy Treatment Note M2 OT-IP Current Condition Start: 05/27/24 10:04 Freq: Status: Active Protocol: Document 05/27/24 10:05 [facility] (Rec: 05/27/24 10:17 [facility] [id number]) Occupational Therapy Current Condition Current Condition Evaluation Date 05/27/24 Treatment Diagnosis S/P R hip ORIF Diagnosis Onset Date 05/25/24 Weight Bearing Status Weight Bearing Status Weight Bear as Tolerated M3 OT- IP Subjective and Pain Start: 05/27/24 10:04 Freq: Status: Active Protocol: Document 05/27/24 13:27 [facility] (Rec: 05/27/24 13:31 [facility] [id number]) OT- Subjective Occupational Therapy Visit Type Type Treatment Note Visit Start Time 13:15 Visit Stop Time 13:25 Occupational Therapy Visit Comments Patient Comments Pt's family present for caregiver training. Able to issue FWW for pt. Patient/Caregiver Goals TO go home. OT Pain Assessment Pain When Pain Assessed At Rest Pain Present Pain Present Denied Pain M4 OT- IP ADL's Start: 05/27/24 10:04 Freq: Status: Active Protocol: Document 05/27/24 13:27 [facility] (Rec: 05/27/24 13:31 [facility] [id number]) OT ADL-Dressing Comments OT Dressing Comments Educated pt not ot do excessive bending or crossing of her legs and may need assist for LB dressing or use of LB dressing equipment. M5 OT- IP IADL's Start: 05/27/24 10:04 Freq: Status: Active Protocol: Document 05/27/24 10:05 [facility] (Rec: 05/27/24 10:17 [facility] [id number]) OT-Instrumental Activities of Daily Living Home Safety Awareness Awareness of Need for Assistance at Home Good Awareness Ability to Problem Solve Emergency Able to Problem Solve Situations Home Safety Comments Pt states has family/friends to assist with all her needs. M6 OT- IP Functional Cognition Start: 05/27/24 10:04 Freq: Status: Active Protocol: Document 05/27/24 13:27 [facility] (Rec: 05/27/24 13:31 [facility] [id number]) Cognitive Factors Limiting Selfcare Function Cognitive Comments Cognitive Assessment Comments Pt doing better with safety awareness and able to push up from the bed to stand. M7 OT- IP Mobility and Balance Start: 05/27/24 10:04 Freq: Status: Active Protocol: Document 05/27/24 13:27 [facility] (Rec: 05/27/24 13:31 [facility] [id number]) OT-Transfer Assessment Sit to and From Stand Sit to and from Stand Standby Assistance Transfers Transfer Ability Standby Assistance Technique Transfer Destination Bed,Chair Transfer Technique Stand Step Pivot Devices Transfer Assistive Devices Gait Belt,Front Wheeled Walker Comments Mobility Comments SBA for mobility with FWW. OT- Balance Assessment Sitting Balance and Reactions Static Sitting Balance Ability Normal Dynamic Sitting Balance Ability Normal Standing Balance and Reactions Static Standing Balance Ability Good Dynamic Standing Balance Ability Good M8 OT- IP Objective Assessments Start: 05/27/24 10:04 Freq: Status: Active Protocol: Document 05/27/24 10:05 [facility] (Rec: 05/27/24 10:17 [facility] [id number]) OT Gross Range of Motion Upper Extremity Range of Motion Assessment Within Functional Limits OT Strength Upper Extremity Strength Assessment Within Functional Limits M9 OT- IP Assessment and Plan Start: 05/27/24 10:04 Freq: Status: Active Protocol: Document 05/27/24 13:27 [facility] (Rec: 05/27/24 13:31 [facility] [id number]) OT Summary Assessment and Plan Potential Rehabilitation Potential Excellent Analytic Complexity at Evaluation Low Summary OT Impairments Balance,Functional Mobility, Dressing,Bathing,Shower Transfers Progress Towards Goals Progressing Toward Goals Assessment Summary Pt issued a FWW and went over mobility and ADL needs with pt and caregiver. Goals Dressing Goal Independent Toileting Goal Independent Bathing Goal Standby Assistance Toilet Transfer Goal Independent Shower Transfer Goal Standby Assistance Days to Meet Goals 3 Frequency of Treatment Frequency Of Treatment Once a Day Treatment Plan OT Treatment Plan ADL Training,Functional Mobility,Patient/Family Education,Discharge Planning Discharge Recommendations OT Discharge Recommendations Home with 20/02 Assist Available,Home Health Home Equipment Needs BSC,FWW Transportation Needs at Discharge Private Vehicle
--- NOTE | 2024-05-27 13:31 | PT.IPTN ---
Current Diagnoses Fracture of unspecified part of neck of right femur, initial encounter for closed fracture (05/25/24) Other specified postprocedural states (05/25/24) Surgery Performed Operation Date: 05/25/24 10:00 Actual Procedures p Intramedullary Nailing Femur(Right) - Aidan Rivera MD Physical Therapy Treatment Note M2 PT-IP Current Condition Start: 05/25/24 17:12 Freq: NEEDED Status: Active Protocol: Document 05/25/24 15:40 AB (Rec: 05/25/24 17:30 AB [id number]) Physical Therapy Current Condition Current Condition Evaluation Date 05/25/24 Treatment Diagnosis s/p R hip ORIF; difficulty in walking Onset Date 05/25/24 M3 PT-IP Subjective Start: 05/25/24 17:12 Freq: NEEDED Status: Active Protocol: Document 05/27/24 13:00 MB (Rec: 05/27/24 13:31 MB [id number]) Subjective Physical Therapy Visit Type Type Treatment Note Visit Start Time 13:00 Visit Stop Time 13:23 Number of CARDIOPULMONARY TECHNICIAN Visits 0 Physical Therapy Visit Comments Patient Comments Pt and friend/caregiver agreeable to PT. M4 PT-IP Mobility and Gait Start: 05/25/24 17:12 Freq: NEEDED Status: Active Protocol: Document 05/27/24 13:00 MB (Rec: 05/27/24 13:31 MB [id number]) PT-Bed Mobility Assessment Supine to Sit Supine to Sit Standby Assistance,1 Person Assistance Sit to Supine Sit to Supine Standby Assistance,1 Person Assistance Scooting Scooting to Edge of Bed Standby Assistance Scooting Up and Down in Bed Standby Assistance PT-Transfer Assessment Sit to and From Stand Sit to and from Stand Standby Assistance,1 Person Assistance,Use of Upper Extremities Equipment Transfer Assistive Device Gait Belt,Front Wheeled Walker Transfers Transfer Destination Bed,Chair Transfer Technique Ambulation Transfer Ability Level of Assist Standby Assistance,1 Person Assistance,Use of Upper Extremities Comments Mobility Comments Pt does a good job with hand placement on chair or bed and requires occ VCs to push up from the bed, she does a good job moving walker and stepping with feet and she does not pivot on her foot with gait. OT obtains RW order and RW for pt after pt and caregiver request RW. Gait Assessment Gait Gait Assistance Required: Standby Assistance,1 Person Assist Distance (Feet) 20 Able to Maintain Weight Bearing Status Yes During Gait Assistive Devices Assistive Device Gait Belt,Front Wheeled Walker Gait Deviations General Gait Pattern Antalgic,Flexed Trunk,Step-to Gait Factors Limiting Gait Function Factors Limiting Gait Function Pain,Poor Balance,Poor Safety Awareness Comments Gait Comments 20'x1, 15'x1, 3'x1 with RW and step-to gait, pt turns right and left and also performs retropulsion PT-Balance Assessment Sitting Balance and Reactions Static Sitting Balance Ability Good Dynamic Sitting Balance Ability Good Standing Balance and Reactions Static Standing Balance Ability Good Dynamic Standing Balance Ability Good Device Used RW M5 PT-IP Objective Assessments Start: 05/25/24 17:12 Freq: NEEDED Status: Active Protocol: Document 05/25/24 15:40 AB (Rec: 05/25/24 17:30 AB [id number]) Orientation Orientation/Cognition Level of Alertness Confusional State Orientation Name,Place,Situation Language Function Ability Hard of Hearing Safety Awareness Decreased Safety Awareness Memory Description Short Term Impaired Gross Range of Motion Lower Extremity ROM Impairments increase RLE guarding limiting movement Strength Comments Strength Comments unable to move RLE in bed without assist; unable to complete MMT due to guarding Muscle Tone Muscle Tone WNL Yes M6 PT-IP Treatment Start: 05/25/24 17:12 Freq: NEEDED Status: Active Protocol: Document 05/27/24 13:00 MB (Rec: 05/27/24 13:31 MB [id number]) Physical Therapy Treatment Exercises Exercises Ankle Pumps,Gluteal Sets,Quad Sets,Heel Slides Education Education Provided Precautions,Weight Bearing Status,Safety Other Treatments Other Treatment Performed See comments in assessment about possible hip precautions M7 PT-IP Assessment and Plan Start: 05/25/24 17:12 Freq: NEEDED Status: Active Protocol: Document 05/27/24 13:00 MB (Rec: 05/27/24 13:31 MB [id number]) PT Summary Assessment and Plan Potential Rehabilitation Potential Good Status of Condition at Evaluation Evolving Summary Impairments Pain,ROM,Strength,Balance,Bed Mobility,Transfers,Gait, Activity Tolerance Progress Towards Goals Progressing Toward Goals Assessment Summary Pt and caregiver nearby and RW obtained, transfer, gait, and bed mobility performed. PT waits until 1300 d/t reviewing orders and noting Dr. Rivera wrote order for [facility] protocol post-op. PT texted and called surgeon and he is in surgery today and PT could not obtain clarification. PT looks at surgical location on right leg and it appears lateral and mildly posterior and so unlikely anterior hip precautions. PT instructed pt and caregiver in no flexion past 90 deg, no pivoting/ twisting on foot and no crossing legs until she sees Dr. Rivera at follow-up appointment. Pt to d/c with friends/caregivers today. Frequency of Treatment Frequency Of Treatment Discharge Precautions Other Precautions See assessment comments above Weight Bearing Status Weight Bearing Status Weight Bear as Tolerated Allowed Weight Bearing Amount (enter % RLE WBAT or #) (%) Recommendations To Nursing Amount of Assist Needed Standby Assistance Discharge Recommendations PT Discharge Recommendations Home with 20/02 Assist Available,Home Health Transportation Needs at Discharge Private Vehicle
--- NOTE | 2024-05-27 14:00 | PC.NURSE ---
Day shift: Discharge instructions gone over with patient and patient's friend. Stated understanding, all questions answered. PIV removed prior to discharge. All belongings with patient. 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
[2024-05-28 14:12] LABS: Osmolality Urine 288 mOsmol/kg (.)
== END 2024-05-27 14:15 | disposition home health service (06) | DRG 480 ==
LOC: ED 05-25 02:28 → AC 05-25 02:33
PROVIDERS: Internal Medicine; Orthopaedic Surgery Adult Reconstructive Orthopaedic Surgery; Admitting Provider Internal Medicine; Emergency Provider Emergency Medicine; Referring Provider Emergency Medicine; Visit Provider Internal Medicine
PROC: 0QS636Z Reposition Right Upper Femur with Intramedullary Internal Fixation Device, Percutaneous Approach (ICD-10-PCS; CPT 27245; principal; 2024-05-25 10:00)
DX: M80.051A Age-related osteoporosis with current pathological fracture, right femur, initial encounter for fracture (principal); J96.01 Acute respiratory failure with hypoxia; E87.1 Hypo-osmolality and hyponatremia; N30.00 Acute cystitis without hematuria; D62 Acute posthemorrhagic anemia; E86.0 Dehydration; M16.11 Unilateral primary osteoarthritis, right hip; B96.1 Klebsiella pneumoniae [K. pneumoniae] as the cause of diseases classified elsewhere; W18.30XA Fall on same level, unspecified, initial encounter; Z66 Do not resuscitate
CPT/HCPCS: 36415; 71045; 73502; 76000; 80048; 80053; 81001; 83880; 83935; 84300; 85025; 85610; 87077; 87086; 87186; 93005; 94762; 96374; 97110; 97162; 97165; 97530; 97535; 99284; 99285; J0171; J0330; J0690; J0696; J1171; J2405; J2704; J3010